=== PATIENT | female | born 1960 | race Caucasian/White ===

== ENCOUNTER 2020-05-03 10:11 | Outpatient (CLI) | payer OTHER, SELFPAY ==
--- NOTE | ~2020-05-03 | MM_ITS ---
EXAMINATION: MM screening jailyn BI w marlon HISTORY: Screening mammogram TECHNIQUE: Craniocaudal and mediolateral oblique 3-D tomosynthesis images were obtained and synthetic 2-D images were generated. CAD analysis was submitted and interpreted. COMPARISON: 03/22/2019, 03/09/2018, 03/06/2017, 03/05/2016 bilateral digital screening mammogram examinat ions BREAST PARENCHYMAL COMPOSITION: There are scattered areas of fibroglandular density. FINDINGS: There is an approximately 5 mm circumscribed opacity in the posterior aspect of the lower i nner quadrant of the right breast; this is unchanged since 03/05/2016 and therefore consistent with be nign process. There is no evidence of suspicious mass, calcification, or architectural distortion to suggest malignancy in either breast. There has been no suspicious interval change. IMPRESSION: 1. No mammographic evidence of malignancy. 2. Recommend routine screening mammography in one year. BI-RADS Category 2: Benign finding(s). Reviewed, dictated and finalized at location A.
== END 2020-05-03 10:12 | disposition home or self-care (01) ==
PROVIDERS: PCP Family Medicine Adolescent Medicine; Visit Provider Obstetrics & Gynecology
DX: Z12.31 Encounter for screening mammogram for malignant neoplasm of breast (principal)
CPT/HCPCS: 77063; 77067

== ENCOUNTER 2021-03-02 08:21 | Emergency (ER) | payer OTHER, SELFPAY ==
[2021-03-02 08:32] VITALS: BP 155/84; PULSE 76; RESP 16; TEMP 36; O2SAT 99
--- NOTE | 2021-03-02 08:37 | ED.EXTPRO ---
HPI - Extremity Problem General Chief complaint: Extremity Problem,Nontraumatic Stated complaint: right foot pain Time Seen by Provider: 03/02/21 08:37 Source: patient and RN notes reviewed Mode of arrival: ambulatory Limitations: no limitations History of Present Illness HPI Narrative: 60-year-old female presents with concern for right foot pain. Reports foot pain started yesterday. She denies any injury or trauma. She reports lateral foot pain that extends to the heel and Achilles tendon. She reports pain is present at rest, worsens with weightbearing and walking. Reports walking does not cause any worse pain than simple weightbearing. Reports pain worsens with more time weightbearing or walking. She denies bruising, redness, swelling, open skin. She denies decrease sensation, strength, range of motion. MD Complaint: extremity pain Related Data Home Medications Medication Instructions Recorded Confirmed atorvastatin 20 mg PO DAILY 03/02/21 03/02/21 azelastine 205.5 mcg INTRANASAL DAILY 03/02/21 03/02/21 betamethasone dipropionate 0.05 applic TOPICAL DAILY 03/02/21 03/02/21 buspirone 10 mg PO DAILY 03/02/21 03/02/21 colestipol 1 g PO DAILY 03/02/21 03/02/21 estradiol [Vagifem] 10 mcg VAGINAL DAILY 03/02/21 03/02/21 estradiol-norethindrone acet 0.5 tablet PO DAILY 03/02/21 03/02/21 [Amabelz] ketoconazole 2 applic TOPICAL DAILY 03/02/21 03/02/21 levothyroxine [Synthroid] 25 mcg PO DAILY 03/02/21 03/02/21 meloxicam 15 mg PO DAILY 03/02/21 03/02/21 metoclopramide HCl 10 mg PO DAILY 03/02/21 03/02/21 pantoprazole 40 mg PO DAILY 03/02/21 03/02/21 trazodone 100 mg PO DAILY 03/02/21 03/02/21 triamcinolone acetonide 0.1 applic TOPICAL DAILY 03/02/21 03/02/21 venlafaxine 75 mg PO DAILY 03/02/21 03/02/21 Allergies Allergy/AdvReac Type Severity Reaction Status Date / Time propoxyphene Allergy Mild Itching Verified 07/23/21 08:31 PROPOXYPHENE HCL Allergy Mild ITCHING Uncoded 03/02/21 08:31 PROPOXYPHENE NAPSYLATE Allergy Mild ITCHING Uncoded 03/02/21 08:31 Review of Systems Review of Systems: Narrative: CONSTITUTIONAL: Denies malaise, chills, sweats, or fever. SKIN: Denies abrasions, abrasions, bruising, redness MUSCULOSKELETAL: Reports right foot pain. Denies NEUROLOGIC: Denies numbness, weakness All systems reviewed & are unremarkable except as noted in HPI and below PMFSH Past Medical History Medical History (Updated 03/02/21 @ 08:53 by Cordelia Kevin NP) Chondromalacia of left patellofemoral joint Surgical History Surgical History (Updated 06/23/19 @ 15:51 by Mendez Hoffman MD) Status post left partial knee replacement Family History Family History Sibling Family history of diabetes mellitus in first degree relative Mother Family history of malignant neoplasm of breast in first degree relative Social History Social History Smoking status: Light tobacco smoker Smoking end date: 08/11/80 Alcohol intake: current Comments At time of signature, agree with nursing past medical, surgical, social and family history. There is no relevant family history pertinent to the presenting complaint Exam Narrative: Exam Narrative: GENERAL: Well-appearing, well-nourished, and in no acute distress. HEAD: Normocephalic, atraumatic. EYES: PERRLA, conjunctivae clear NECK: Supple. CHEST: Speaks in full sentences. No respiratory distress. HEART: Regular rate and rhythm. Normal and equal peripheral pulses. EXTREMITIES: Right foot has normal strength and sensation, normal range of motion. No edema or ecchymosis. 5/5 strength with ankle and digit flexion and extension. Normal sensation with sensitivity to light touch and pain. Mild tenderness to the heel upon palpation, no other tenderness noted to the foot or digits, no point tenderness. No open wounds, no skin tenting, no devitalized tissue or atrophy, n
== END 2021-03-02 08:55 | disposition home or self-care (01) ==
PROVIDERS: Emergency Provider Nurse Practitioner; PCP Family Medicine Adolescent Medicine
DX: M79.671 Pain in right foot (principal); M22.42 Chondromalacia patellae, left knee; Z96.652 Presence of left artificial knee joint
CPT/HCPCS: 99213; G0463

== ENCOUNTER → 2021-05-28 10:10 | Outpatient (CLI) | payer OTHER, SELFPAY ==
--- NOTE | ~2021-05-28 | DEXA_ITS ---
Bone Density Report Name: Erin Stephens Age: 61 Sex: Female Ethnicity: White Date of : 1960 Indication: monitoring treatment;postmenopausal Referring Provider: Tee Soriano Study: Bone densitometry was performed. Exam Date: May 28, 2021 Accession number: [id number] Bone Density: Region BMD T-score Z-score Classification AP Spine (L1, L2, L3) 1.144 1.1 2.7 Normal Femoral Neck (Left) 0.616 -2.1 -0.7 Osteopenia Total Hip (Left) 0.845 -0.8 0.3 Normal Femoral Neck (Right) 0.686 -1.5 -0.1 Osteopenia Total Hip (Right) 0.855 -0.7 0.4 Normal Total Hip Mean 0.850 -0.8 0.4 Normal World Health Organization criteria for BMD impression classify patients as: Normal (T-score at or above -1.0), Osteopenia (T-score between -1.0 and -2.5), or Osteoporosis (T-score at or below -2.5). 10-year Fracture Risk: FRAX not reported because: Treated for osteoporosis Previous Exams: Region Exam Age BMD T-score BMD Change BMD Change Date g/cm2 vs Baseline vs Previous AP Spine(L1, L2, L3) 05/28/2021 61 1.144 1.1 0.154* 0.079* 03/22/2019 58 1.065 0.4 0.075* 0.069* 03/06/2017 56 0.996 -0.2 0.006 -0.007 01/19/2013 52 1.003 -0.1 0.013 0.075* 01/04/2011 50 0.927 -0.8 -0.062* -0.062* 06/05/2009 49 0.990 -0.3 Total Hip(Left) 05/28/2021 61 0.845 -0.8 0.003 0.019 03/22/2019 58 0.826 -1.0 -0.017 -0.013 03/06/2017 56 0.839 -0.8 -0.003 -0.047* 01/19/2013 52 0.887 -0.5 0.044* 0.076* 01/04/2011 50 0.810 -1.1 -0.032* -0.032* 06/05/2009 49 0.843 -0.8 Total Hip(Right) 05/28/2021 61 0.855 -0.7 -0.003 -0.011 03/22/2019 58 0.866 -0.6 0.009 -0.006 03/06/2017 56 0.872 -0.6 0.014 -0.021 01/19/2013 52 0.893 -0.4 0.036* 0.059* 01/04/2011 50 0.834 -0.9 -0.023 -0.023 06/05/2009 49 0.857 -0.7 *Denotes significance at 95% confidence level, LSC for AP Spine = 0.022 g/cm2, LSC for Total Hip = 0.027 g/cm2 Clinical Information Provided by Patient: Is being treated for osteoporosis Has used the following medications: HRT (i.e. estrogen/hormone therapy), Vitamin D, Calcium Patient maximum height was 62 Menopause Age: 46 Drinks caffeinated beverages Onset of menses at age 11 Number of children 2
== END ==
PROVIDERS: PCP Family Medicine Adolescent Medicine; Visit Provider Obstetrics & Gynecology
DX: Z12.31 Encounter for screening mammogram for malignant neoplasm of breast (principal); Z13.820 Encounter for screening for osteoporosis; Z78.0 Asymptomatic menopausal state
CPT/HCPCS: 77080

== ENCOUNTER → 2021-07-09 10:12 | Outpatient (CLI) | payer OTHER, SELFPAY ==
--- NOTE | ~2021-07-09 | MM_ITS ---
EXAMINATION: MM screening jailyn BI w marlon HISTORY: Screening mammogram TECHNIQUE: Craniocaudal and mediolateral oblique 3-D tomosynthesis images were obtained and synthetic 2-D images were generated. CAD analysis was submitted and interpreted. COMPARISON: 05/03/2020, 03/22/2019, 03/09/2018 bilateral screening mammogram examinations BREAST PARENCHYMAL COMPOSITION: There are scattered areas of fibroglandular density. FINDINGS: Mild chronic asymmetry is noted. There is no evidence of suspicious mass, calcification, or architectural distortion to suggest malignancy in either breast. No significant new or developing de nsity is noted. There has been no suspicious interval change. IMPRESSION: 1. No mammographic evidence of malignancy. 2. Recommend routine screening mammography in one year. BI-RADS Category 2: Benign finding(s). Reviewed, dictated and finalized at location A. ROUTE CONTROLLER
== END ==
PROVIDERS: PCP Family Medicine Adolescent Medicine; Visit Provider Obstetrics & Gynecology
DX: Z12.31 Encounter for screening mammogram for malignant neoplasm of breast (principal)
CPT/HCPCS: 77063; 77067

== ENCOUNTER 2021-12-17 16:18 | Emergency (ER) | payer OTHER, SELFPAY ==
[2021-12-17 16:29] VITALS: BP 150/83; PULSE 106; RESP 18; TEMP 36.4; O2SAT 100
--- NOTE | 2021-12-17 16:29 | ED.GENADULT ---
HPI - General Adult General Chief complaint: Unspecified Stated complaint: Chills Time Seen by Provider: 12/17/21 16:29 Source: patient, RN notes reviewed and old records reviewed Mode of arrival: ambulatory Limitations: no limitations History of Present Illness HPI narrative: 61-year-old female presents to the [facility] with chills, sweats, fatigue, postnasal drip, nausea, vomited x1. Patient denies any chest pain or abdominal pain. States whenever she drinks water she gets increased nausea. Has a history of anxiety and has taken her Xanax but no improvement of symptoms. Denies any nasal congestion, ear pain, sore throat, chest pain, cough, abdominal pain. Denies actually having a fever. Patient symptoms are vague. Patient does not appear acutely ill, peers anxious. States she has been taking all of her medication as prescribed Reports taking one of her Xanax states it did not help her. Related Data Home Medications Medication Instructions Recorded Confirmed azelastine 205.5 mcg INTRANASAL DAILY 03/02/21 08/22/21 betamethasone dipropionate 0.05 applic TOPICAL DAILY 03/02/21 08/22/21 colestipol 1 g PO DAILY 03/02/21 08/22/21 estradiol-norethindrone acet 0.5 tablet PO DAILY 03/02/21 08/22/21 [Amabelz] ketoconazole 2 applic TOPICAL DAILY 03/02/21 08/22/21 metoclopramide HCl 10 mg PO DAILY 03/02/21 08/22/21 pantoprazole 40 mg PO DAILY 03/02/21 08/22/21 triamcinolone acetonide 0.1 applic TOPICAL DAILY 03/02/21 08/22/21 calcium carbonate 600 mg-vitamin cap PO 08/22/21 08/22/21 D3 5 mcg (200 unit) capsule celecoxib 200 mg capsule 200 mg PO BID PRN 08/22/21 08/22/21 hydroxyzine HCl 25 mg tablet 25 mg PO QHS PRN tablet 08/22/21 08/22/21 magnesium oxide,aspartate,citr mg PO 08/22/21 08/22/21 melatonin 3 mg capsule 3 mg PO QHS 08/22/21 08/22/21 polypodium leucotomos extract 120 cap PO 08/22/21 08/22/21 mg-niacinamide 250 mg capsule zinc acetate 50 mg (zinc) capsule 50 mg PO DAILY 08/22/21 08/22/21 Allergies Allergy/AdvReac Type Severity Reaction Status Date / Time propoxyphene Allergy Mild Itching Verified 12/17/21 16:28 lisinopril AdvReac Mild Cough Verified 12/17/21 16:28 PROPOXYPHENE HCL Allergy Mild ITCHING Uncoded 12/17/21 16:28 PROPOXYPHENE NAPSYLATE Allergy Mild ITCHING Uncoded 12/17/21 16:28 Review of Systems Review of Systems: All systems reviewed & are unremarkable except as noted in HPI and below Constitutional: Constitutional: Reports as per HPI, Reports chills, Reports fatigue and Denies fever(s) Eyes: Eyes: Reports no additional eye complaints ENT: Reports system reviewed and no additional complaints, except as documented, Denies dysphagia, Denies dizziness, Denies nasal congestion and Denies sore throat Cardiovascular: Cardiovascular: Reports no additional cardiovascular complaints, Denies chest pain and Denies radiating jaw, neck or arm pain Respiratory: Respiratory: Reports no additional respiratory complaints, Denies chest congestion, Denies cough, Denies dyspnea and Denies wheezing Gastrointestinal: Gastrointestinal: Reports no additional gastrointestinal complaints, Denies abdominal pain, Denies diarrhea, Denies nausea and Denies vomiting Musculoskeletal: Musculoskeletal: Reports no additional musculoskeletal complaints, Denies back pain, Denies myalgias, Denies arthralgias and Denies joint swelling Integumentary/Breasts: Skin/Breast: Reports system reviewed and no additional complaints, except as docu Neurologic: Reports system reviewed and no additional complaints, except as documented Psychiatric: Psychiatric: Reports as per HPI, Reports anxiety, Denies homicidal ideation and Denies suicidal ideation Allergic/Immunologic: Allergic/Immunologic: Reports no additional allergic/immunologic complaints PMFSH Past Medical History Medical History (Updated 12/17/21 @ 16:51 by Cordelia Alexis, JOE) Chondromalacia of left patellofemoral joint GERD (gastroesophageal reflux disease) Hypothyroid Kathryn
== END 2021-12-17 16:55 | disposition home or self-care (01) ==
PROVIDERS: Emergency Provider Nurse Practitioner; PCP Family Medicine Adolescent Medicine
DX: F41.9 Anxiety disorder, unspecified (principal); R11.0 Nausea; R68.83 Chills (without fever); E03.9 Hypothyroidism, unspecified; Z87.891 Personal history of nicotine dependence
CPT/HCPCS: 87804; 99213; G0463

== ENCOUNTER → 2022-10-14 12:44 | Outpatient (CLI) | payer OTHER, SELFPAY ==
--- NOTE | ~2022-10-14 | XR_ITS ---
XR chest 2V DATE: 10/14/2022 13:40 INDICATION: Cough TECHNIQUE: PA and lateral views COMPARISON: None FINDINGS: Normal heart size. No hilar or mediastinal enlargement. No pulmonary infiltrate or consolid ation, pleural effusion or pulmonary vascular congestion or pneumothorax. IMPRESSION: No active cardiopulmonary disease Reviewed, dictated and finalized at location B. ESTATE LEGAL SECRETARY
== END ==
PROVIDERS: PCP Family Medicine Adolescent Medicine; Visit Provider Physician Assistant
DX: R05.9 Cough, unspecified (principal)
CPT/HCPCS: 71046

== ENCOUNTER 2022-10-29 07:56 | Outpatient (CLI) | payer OTHER, SELFPAY ==
--- NOTE | 2022-10-29 11:13 | WPDPFTINT ---
PFT Procedure Performed PFT Procedure Performed Spirometry with Pre/Post Bronchodilator Plethysmography (Lung Vol) Diffusing Cap (DLCO) Flow Vol Loop PFT Interpretation This is a pulmonary function test with pre and post-bronchodilator spirometry, plethysmography and diffusing capacity. The test was performed and results interpreted in accordance with the 2019 and 2005 ATS/ERS Task Force guidelines respectively using the Global Lung Function Initiative-2012 reference equations. Patient demonstrated good effort and cooperation. Reproducibility criteria were met. The quality of the pre bronchodilator spirometry maneuver was Grade A and post bronchodilator spirometry maneuver was Grade A. Findings: Spirometry: The contour the inspiratory and expiratory flow tracing are normal. The pre bronchodilator FVC is 3.27 L, 116% predicted. The pre bronchodilator FEV1 is 2.46 L, 111% predicted. The pre bronchodilator FEV1: FVC ratio 75%. The post bronchodilator FVC is 3.10 L, representing a 5% decrease. The post bronchodilator FEV1 is 2.60 L, representing a 5% increase. The post bronchodilator FEV1: FVC ratio was 84%. Plethysmography: The total lung capacity is 4.81 L, 102% predicted. The functional residual capacity is 2.25 L, 84% predicted. The residual volume is 1.53 L, 78% predicted. Diffusing capacity: The diffusing capacity unadjusted for hemoglobin and carboxyhemoglobin is 14.0, 69% predicted. The diffusing capacity adjusted for alveolar volume is 3.86, 86% predicted. Impression: The spirometry is normal without evidence of an obstructive abnormality. There is no significant improvement after inhaling a single dose of albuterol. The lung volumes are normal. The diffusing capacity is normal. There are no prior studies for comparison
== END 2022-10-29 07:57 | disposition home or self-care (01) ==
LOC: ANHPFT 07:57
PROVIDERS: PCP Family Medicine Adolescent Medicine; Visit Provider Physician Assistant
DX: R05.9 Cough, unspecified (principal)
CPT/HCPCS: 94060; 94726; 94729

== ENCOUNTER → 2022-11-04 12:10 | Outpatient (CLI) | payer OTHER, SELFPAY ==
--- NOTE | ~2022-11-04 | MM_ITS ---
EXAMINATION: MM screening jailyn BI w marlon HISTORY: Screening TECHNIQUE: Craniocaudal and mediolateral oblique 3-D tomosynthesis images were obtained and synthetic 2-D images were generated. CAD analysis was submitted and interpreted. COMPARISON: Comparison to multiple prior studies sequentially, with oldest reviewed study dated 03/05. BREAST PARENCHYMAL COMPOSITION: There are scattered areas of fibroglandular density. FINDINGS: Focal asymmetry in the lower inner quadrant of the right breast is stable. There is no evid ence of suspicious mass, calcification, or architectural distortion to suggest malignancy in either b reast. There has been no suspicious interval change. IMPRESSION: 1. No mammographic evidence of malignancy. 2. Recommend routine screening mammography in one year. BI-RADS Category 1: Negative Reviewed, dictated and finalized at location A.
== END ==
PROVIDERS: PCP Family Medicine Adolescent Medicine; Visit Provider Obstetrics & Gynecology
DX: Z12.31 Encounter for screening mammogram for malignant neoplasm of breast (principal)
CPT/HCPCS: 77063; 77067

== ENCOUNTER 2023-12-02 13:58 | Outpatient (CLI) | payer MEDICARE, SELFPAY ==
--- NOTE | ~2023-12-02 | XR_ITS ---
AP view of the pelvis and AP and lateral views of the bilateral hips Clinical history: Pain Findings: No acute fracture or dislocation is seen. Osseous alignment is anatomic. Bilateral hip and SI joint spaces are preserved. Soft tissues are unremarkable. Lumbosacral spinal fixation hardware no jessica. There is degenerative spondylosis of the lower lumbar spine. Impression: No significant abnormality of the hip joints. Lumbar spine degenerative spondylosis with lumbosacral spinal fixation hardware. Reviewed, dictated and finalized at location M. Impression: No significant abnormality of the hip joints. Lumbar spine degenerative spondylosis with lumbosacral spinal fixation hardware .
== END 2023-12-02 13:59 ==
LOC: MICIMG 13:59
PROVIDERS: PCP Obstetrics & Gynecology; Visit Provider Nurse Practitioner Family
DX: G89.29 Other chronic pain (principal); M25.551 Pain in right hip; M25.552 Pain in left hip; M47.896 Other spondylosis, lumbar region; Z98.1 Arthrodesis status
CPT/HCPCS: 73521

== ENCOUNTER 2024-01-07 08:42 | Outpatient (CLI) | payer MEDICARE, SELFPAY ==
--- NOTE | ~2024-01-07 | CT_ITS ---
EXAMINATION: CT sinus wo con DATE: 01/07/2024 08:55 INDICATION: Sinusitis TECHNIQUE: Computed tomography (CT) of the paranasal sinuses was performed without intravenous contra st. The dose-length product was 274.70 mGy-cm. Automated exposure control and iterative reconstructio n technique were employed. COMPARISON: CT dated 12/01/2009 FINDINGS: No significant mucosal thickening or air-fluid level. Mastoids are pneumatized. Rightward n winifred septal deviation. Left-sided denae bullosa. Ostiomeatal units are patent. IMPRESSION: 1. No significant sinus disease. Reviewed, dictated and finalized at location B.
== END 2024-01-07 08:43 ==
PROVIDERS: PCP Family Medicine Adolescent Medicine; Visit Provider Otolaryngology
DX: J01.01 Acute recurrent maxillary sinusitis (principal)
CPT/HCPCS: 70486

== ENCOUNTER 2024-04-30 11:28 | Outpatient (CLI) | payer MEDICARE, SELFPAY ==
--- NOTE | ~2024-04-30 | MM_ITS ---
EXAMINATION: MM screening jailyn BI w marlon HISTORY: Screening mammogram, family history of breast cancer in her mother and sister. TECHNIQUE: Craniocaudal and mediolateral oblique 3-D tomosynthesis images were obtained and synthetic 2-D images were generated. CAD analysis was submitted and interpreted. COMPARISON: 11/04/2022, 07/09/2021, 05/03/2020 BREAST PARENCHYMAL COMPOSITION:Not Dense. There are scattered areas of fibroglandular density. FINDINGS: No suspicious mass, calcification, or architectural distortion are identified in either remedios ast to suggest malignancy. There has been no suspicious interval change. IMPRESSION: No mammographic evidence of malignancy. Recommend routine screening mammography in one year. BI-RADS Category 1: Negative Reviewed, dictated and finalized at location .
== END 2024-04-30 11:29 | disposition home or self-care (01) ==
LOC: MICIMG 11:28
PROVIDERS: PCP Family Medicine Adolescent Medicine; Visit Provider Obstetrics & Gynecology
DX: Z12.31 Encounter for screening mammogram for malignant neoplasm of breast (principal)
CPT/HCPCS: 77063; 77067

== ENCOUNTER 2024-05-03 10:02 | Outpatient (CLI) | payer MEDICARE, SELFPAY ==
--- NOTE | ~2024-05-03 | MR_ITS ---
MRI of the cervical spine Clinical History: Mononeuropathy of upper limbs Technique: Axial T2-weighted and gradient images, and sagittal T1-weighted, T2-weighted, and STIR johanna ges were acquired. Findings: There is straightening of the normal cervical lordosis. No fracture evident. There is minim al grade 1 anterolisthesis of C6 over C7. There is an intraosseous hemangioma at T2. No suspicious bri ne marrow signal abnormality seen. At C2-C3, there is no disc bulge or herniation. No spinal canal stenosis, cord compression, or neural foraminal narrowing. At C3-C4, there is moderate degenerative change. There is mild disc ossify complex and bilateral face t arthropathy. There is bilateral neural foraminal narrowing. No central canal stenosis or cord compr ession. At C4-C5, there is moderate degenerative disc narrowing. There is disc ossify complex and bilateral f acet arthropathy. There is bilateral neural foraminal narrowing. There is mild canal stenosis without ade cord compression. At C5-C6, there is moderate degenerative disc narrowing. There is mild disc ossify complex with bilat eral facet arthropathy, right worse than left. There is severe right neural foraminal narrowing. Left neural foramen is mildly narrowed. No ade canal stenosis or cord compression. At C6-C7, there is degenerative disc narrowing. No disc bulge or herniation evident. There is right f acet arthropathy. There is possible minimal right neural foraminal narrowing. Left neural foramen pre served. No central canal stenosis or cord compression. No abnormal signal seen in the spinal cord. Paravertebral soft tissues are unremarkable. Impression: Moderate degenerative spondylosis overall, as detailed above. Reviewed, dictated and finalized at location M. Impression: Moderate degenerative spondylosis overall, as detailed above.
== END 2024-05-03 10:03 | disposition home or self-care (01) ==
LOC: MICIMG 10:02
PROVIDERS: PCP Family Medicine Adolescent Medicine; Visit Provider Nurse Practitioner Family
DX: M47.892 Other spondylosis, cervical region (principal)
CPT/HCPCS: 72141

== ENCOUNTER 2024-05-13 06:08 | Day surgery (SDC) | payer MEDICARE, SELFPAY ==
[2024-04-14 15:16] VITALS: BMI 31.8
--- NOTE | 2024-05-12 16:09 | WPDANESEPPF ---
Anes - Initial Pre Proc Eval Procedure: Operation Date: 05/13/24 07:30 Proposed Procedures p Esophagogastroduodenoscopy - Noe Jon MD s Diagnostic Colonoscopy - Noe Jon MD Date/Time: 05/12/24 16:09 Surgeon: Noe Jon MD Pre Op Diagnosis: Gerd , HX Colon Polyps Patient Data Age: 63 Gender: F Height: 1.57 m Weight: 79.288 kg Allergies Allergy/AdvReac Type Severity Reaction Status Date / Time propoxyphene Allergy Mild Itching Verified 05/13/24 06:23 lisinopril AdvReac Mild Cough Verified 05/13/24 06:23 PROPOXYPHENE HCL Allergy Mild ITCHING Uncoded 05/13/24 06:23 PROPOXYPHENE NAPSYLATE Allergy Mild ITCHING Uncoded 05/13/24 06:23 Home Medications Medication Instructions Recorded Confirmed Type estradiol-norethindrone acet 0.5 0.5 tablet PO DAILY 03/02/21 05/13/24 History mg-0.1 mg tablet (Amabelz) calcium 600 mg (as 1 cap PO DIRECTED 08/22/21 05/13/24 History carbonate)-vitamin D3 5 mcg (200 unit) capsule (Calcium 600 + D(3)) multivitamin with minerals 1 tablet PO DAILY 12/24/21 05/13/24 History (Hair,Skin and Nails tablet) alprazolam 0.25 mg tablet 0.25 mg PO TID PRN anxiety #90 tabs 10/09/22 05/13/24 Rx fluticasone propionate 50 2 spray intranasal DAILY #48 grams 05/04/23 05/13/24 Rx mcg/actuation nasal spray,suspension (Allergy Relief (fluticasone)) levothyroxine 50 mcg tablet 50 mcg PO DAILY #90 tabs 05/05/23 05/13/24 Rx gabapentin 300 mg capsule 600 mg PO BID 05/14/23 05/13/24 History buspirone 15 mg tablet 15 mg PO BID #180 tabs 06/12/23 05/13/24 Rx trazodone 100 mg tablet 100 mg PO QHS #90 tabs 07/09/23 05/13/24 Rx losartan 100 mg tablet 100 mg PO DAILY #90 tabs 11/07/23 05/13/24 Rx celecoxib 200 mg capsule (Celebrex) 200 mg PO BID #180 caps 11/17/23 05/13/24 Rx estradiol 10 mcg vaginal tablet 10 mcg vaginal 2XW 12/22/23 05/13/24 History (Yuvafem) lifitegrast 5 % eye drops in a 1 drp EACH EYE BID 12/22/23 05/13/24 History dropperette (Xiidra) atorvastatin 20 mg tablet See Rx Instructions .Route 01/29/24 05/13/24 Rx .COMPLEX #90 tabs sodium,potassium,mag sulfates 17.5 See Rx Instructions PO .COMPLEX 04/14/24 05/13/24 Rx gram-3.13 gram-1.6 gram oral soln #354 mL (Suprep Bowel Prep Kit) indapamide 2.5 mg tablet 2.5 mg PO DAILY #90 tabs 04/25/24 05/13/24 Rx atomoxetine 18 mg capsule 18 mg PO DAILY 04/28/24 05/13/24 History duloxetine 30 mg capsule,delayed 30 mg PO DIRECTED 04/28/24 05/13/24 History release duloxetine 60 mg capsule,delayed 60 mg PO DAILY 04/28/24 05/13/24 History release hydroxyzine HCl 10 mg tablet 10 mg PO BID PRN UNKNOWN 04/28/24 05/13/24 History omeprazole 40 mg capsule,delayed 40 mg PO DAILY laryngopharyngeal 05/12/24 05/13/24 Rx release reflux #60 caps Patient hx anesthesia problems: none Family hx anesthesia problems: none Results Review: All pre-operative results and documents have been reviewed as part of the pre-operative evaluation. [facility] Past Medical History Medical History (Updated 05/13/24 @ 07:11 by Noe Jon MD) Chondromalacia of left patellofemoral joint GERD (gastroesophageal reflux disease) Hypertension Hypothyroid Major depressive disorder, recurrent, mild Osteopenia Prediabetes Pure hypercholesterolemia, unspecified Rotator cuff injury Seasonal affective disorder Surgical History Surgical History History of rotator cuff surgery S/p total knee replacement, bilateral Status post left partial knee replacement Family History Family History Sibling Family history of diabetes mellitus in first degree relative Autoimmune hepatitis Mother Family history of malignant neoplasm of breast in first degree relative Heart disease Father , Colon Ca Carcinoma of colon Social History Social History (Reviewed 04/28/24 @ 10:20 by Milena Haro AP
[2024-05-13 06:28] VITALS: BP 143/90; PULSE 77; RESP 15; TEMP 36.5; O2SAT 97
[2024-05-13] MEDS: LACTATED RINGERS 1,000 ML 150 ML IV CONT (06:47)
--- NOTE | 2024-05-13 07:07 | PM.HPGS ---
History of Present Illness History of Present Illness Consent: Risks, benefits, and alternatives have been discussed and questions answered. Patient agrees to proceed with procedure. Chief complaint: Gerd , HX Colon Polyps Narrative: Erin Stephens is a 63 year old female is referred for both colonoscopy and EGD. The patient complains of ongoing regurgitation. At night she will have food which comes back in her throat. She Denies significant heartburn. She does have some pins and needle sensation in her throat. Patient denies any heartburn. In the past has been treated with pantoprazole. Most recently she has been treated with omeprazole. Symptoms persist despite this therapy. Follow-up EGD was recommended and patient referred for EGD this current status. She currently is to avoid anti-reflux surgery. Additionally patient gives a history of having colon polyps on several previous colonoscopies. Adenomatous polyps were removed at the time of most recent colonoscopy 5 years ago. Review of Systems Review of Systems: All systems reviewed & are unremarkable except as noted in HPI and below PMFSH Past Medical History Medical History (Updated 05/13/24 @ 07:11 by Noe Jon MD) Chondromalacia of left patellofemoral joint GERD (gastroesophageal reflux disease) Hypertension Hypothyroid Major depressive disorder, recurrent, mild Osteopenia Prediabetes Pure hypercholesterolemia, unspecified Rotator cuff injury Seasonal affective disorder Surgical History Surgical History History of rotator cuff surgery S/p total knee replacement, bilateral Status post left partial knee replacement Family History Family History Sibling Family history of diabetes mellitus in first degree relative Autoimmune hepatitis Mother Family history of malignant neoplasm of breast in first degree relative Heart disease Father , Colon Ca Carcinoma of colon Social History Social History Smoking status: Former smoker Tobacco type: cigarettes Second hand tobacco smoke exposure: No Smoking end date: 08/11/80 Alcohol intake: current Drinks per week: 1 Substance use: never Substance use type: does not use Lack of Transportation: No Lack of Food: Never True Current Housing: I Have Housing Concerned About Future Housing: No Difficulty Paying Gas/Electric Bills: No Difficulty Paying for Meds: No Currently Unemployed: No Education: Master's Degree or Higher Difficulty w/ Childcare or Family Care: No Living arrangements: with family Occupation/Education: retired Gender identity (if verbalized by the patient): Female Sexual Orientation (if Verbalized by the Patient): Straight or Heterosexual Spiritual care concerns: No Agree to blood products: Yes Meds Home Medications and Allergies Home Medications Medication Instructions Recorded Confirmed Type estradiol-norethindrone acet 0.5 0.5 tablet PO DAILY 03/02/21 05/13/24 History mg-0.1 mg tablet (Amabelz) calcium 600 mg (as 1 cap PO DIRECTED 08/22/21 05/13/24 History carbonate)-vitamin D3 5 mcg (200 unit) capsule (Calcium 600 + D(3)) multivitamin with minerals 1 tablet PO DAILY 12/24/21 05/13/24 History (Hair,Skin and Nails tablet) alprazolam 0.25 mg tablet 0.25 mg PO TID PRN anxiety #90 tabs 10/09/22 05/13/24 Rx fluticasone propionate 50 2 spray intranasal DAILY #48 grams 05/04/23 05/13/24 Rx mcg/actuation nasal spray,suspension (Allergy Relief (fluticasone)) levothyroxine 50 mcg tablet 50 mcg PO DAILY #90 tabs 05/05/23 05/13/24 Rx gabapentin 300 mg capsule 600 mg PO BID 05/14/23 05/13/24 History buspirone 15 mg tablet 15 mg PO BID #180 tabs 06/12/23 05/13/24 Rx trazodone 100 mg tablet 100 mg PO QHS #90 tabs 07/09/23 05/13/24 Rx losar
[2024-05-13 07:48] VITALS: BP 108/66; PULSE 79; RESP 16; O2SAT 96
[2024-05-13 07:58] VITALS: BP 104/64; PULSE 79; RESP 16; O2SAT 97
[2024-05-13 08:08] VITALS: BP 116/72; PULSE 78; RESP 16; O2SAT 98
--- NOTE | 2024-05-13 12:02 | WPDANESPN ---
Anes - Prog Note Post-Op Date/Time: 05/13/24 12:02 Cardiovascular status: normal Respiratory status: normal Airway patency: baseline Mental status: baseline Post-Op hydration status: normal Vital Signs: Last Vital Signs Temp 36.5 C 05/13/24 06:28 Pulse 78 05/13/24 08:08 Resp 16 05/13/24 08:08 BP 116/72 05/13/24 08:08 Pulse Ox 98 05/13/24 08:08 O2 Del Method Room Air 05/13/24 08:08 Pain Score (VAS): 0 I/O: Intake & Output 05/12/24 05/13/24 05/13/24 23:59 07:59 15:59 Intake Total 600 300 Balance 600 300 Post-procedural complaints: none Patient Feedback: Patient satisfied with anesthetic care. Other Findings: Patient vital signs back to baseline. Patient denies nausea and vomiting. Patient's pain under control. Patient OK for discharge.
== END 2024-05-13 08:19 | disposition home or self-care (01) ==
PROVIDERS: PCP Family Medicine Adolescent Medicine; Visit Provider Internal Medicine Gastroenterology
PROC: 0DJ08ZZ Inspection of Upper Intestinal Tract, Via Natural or Artificial Opening Endoscopic (ICD-10-PCS; CPT 43235; principal; 2024-05-13 07:30)
PROC: 0DJD8ZZ Inspection of Lower Intestinal Tract, Via Natural or Artificial Opening Endoscopic (ICD-10-PCS; CPT 45378; 2024-05-13 07:30)
DX: Z86.0100 Personal history of colon polyps, unspecified (principal); K21.9 Gastro-esophageal reflux disease without esophagitis; K57.30 Diverticulosis of large intestine without perforation or abscess without bleeding; K64.8 Other hemorrhoids; K44.9 Diaphragmatic hernia without obstruction or gangrene
CPT/HCPCS: 45378; 43239

== ENCOUNTER 2024-06-11 13:37 | Outpatient (CLI) | payer MEDICARE, SELFPAY ==
--- NOTE | ~2024-06-11 | DEXA_ITS ---
Bone Density Report Name: VARUN SZYMANSKI Age: 64 Sex: Female Ethnicity: White Date of : 1960 Indication: postmenopausal; screening for osteoporosis; height loss; Referring Provider: MALACHI LOWE Study: Bone densitometry was performed. Exam Date: June 11, 2024 Accession number: [id number] Bone Density: Region BMD T-score Z-score Classification AP Spine(L1-L4) 1.783 6.7 8.5 Normal Femoral Neck (Left) 0.682 -1.5 0.1 Osteopenia Total Hip (Left) 1.006 0.5 1.8 Normal Femoral Neck (Right) 0.767 -0.7 0.8 Normal Total Hip (Right) 1.013 0.6 1.9 Normal Total Hip Mean 1.009 0.6 1.9 Normal World Health Organization criteria for BMD impression classify patients as: Normal (T-score at or above -1.0), Osteopenia (T-score between -1.0 and -2.5), or Osteoporosis (T-score at or below -2.5). 10-year Fracture Risk(1): Major Osteoporotic Fracture 8.5% Hip Fracture 0.9% Reported Risk Factors: [place] (), Neck BMD=0.682, BMI=33.9 (1) FRAX(R) Version 3.08. Fracture probability calculated for an untreated patient. Fracture probability may be lower if the patient has received treatment. Clinical Information Provided by Patient: Has used the following medications: Vitamin D, Calcium Patient maximum height was 62 Menopause Age: 41 Drinks caffeinated beverages Onset of menses at age 11 Number of children 2 Impression: The patient has low bone mass, based on the Left Femoral Neck T-score. The patient has an estimated ten-year risk of hip fracture of 0.9% and an estimated ten-year risk of major fracture of 8.5%, based on the WHO FRAX algorithm. Discussion: BONE DENSITY IS LOW AT ONE OR MORE SKELETAL SITES. This patient's lowest T-score is low at one or more skeletal sites. It meets the World Health Organization's (WHO) criteria for ?low bone mass? (T-score between -1.0 and -2.5). The patient's 10-year risk of fracture as calculated by FRAX is less than the threshold where pharmacological therapy is recommended by the National Osteoporosis Foundation (NOF). However, all treatment decisions require clinical judgment and consideration of individual patient factors, including patient preferences, comorbidities, previous drug use, risk factors not captured in the FRAX model (e.g., frailty, falls, vitamin D deficiency, increased bone turnover, interval significant decline in bone density) and possible under or overestimation of fracture risk by FRAX. The patient should follow a healthful lifestyle (good nutrition with adequate calcium and vitamin D, and appropriate weight-bearing exercise). Follow-Up: Consider repeating this study in 2 to 3 years to reassess this patient's status, or sooner if there is some new clinical indication. Reported by: JOVANNY on 06/11/2024 2:28:00 PM. Reviewed, dictated and finalized at location [facility]
== END 2024-06-11 13:38 | disposition home or self-care (01) ==
LOC: ANHIMG 13:38
PROVIDERS: PCP Family Medicine Adolescent Medicine; Visit Provider Obstetrics & Gynecology
DX: Z78.0 Asymptomatic menopausal state (principal); M85.852 Other specified disorders of bone density and structure, left thigh
CPT/HCPCS: 77080

== ENCOUNTER 2024-07-14 14:30 | Outpatient (RCR) | payer MEDICARE, SELFPAY | END 2024-08-23 10:04 | disposition home or self-care (01) | LOC: ANHDMC 14:30 | PROVIDERS: PCP Family Medicine Adolescent Medicine; Visit Provider Nurse Practitioner Family | DX: E11.9 Type 2 diabetes mellitus without complications (principal); Z71.89 Other specified counseling | CPT/HCPCS: G0108; G0109 ==

== ENCOUNTER 2024-10-28 14:16 | Outpatient (RCR) | payer MEDICARE, SELFPAY | END 2024-11-01 16:10 | disposition home or self-care (01) | LOC: ANHDMC 14:16 | PROVIDERS: PCP Family Medicine Adolescent Medicine; Visit Provider Nurse Practitioner Family | DX: E11.9 Type 2 diabetes mellitus without complications (principal); Z71.89 Other specified counseling | CPT/HCPCS: G0109 ==

== ENCOUNTER 2025-05-17 14:42 | Outpatient (RCR) | payer MEDICARE, SELFPAY ==
[2025-05-17 14:45] VITALS: BMI 24.0
[2025-05-17 14:48] VITALS: BMI 24.0
--- NOTE | 2025-05-17 16:52 | PCDIET ---
05/17/25: Initial MNT consult completed. Follow up scheduled.
== END 2025-08-08 12:46 | disposition home or self-care (01) ==
LOC: ANHDMC 14:42
PROVIDERS: PCP Nurse Practitioner Family; Visit Provider Family Medicine Adolescent Medicine
DX: E11.9 Type 2 diabetes mellitus without complications (principal); L65.0 Telogen effluvium; E03.9 Hypothyroidism, unspecified; M85.80 Other specified disorders of bone density and structure, unspecified site; Z71.3 Dietary counseling and surveillance
CPT/HCPCS: 97802

== ENCOUNTER 2025-07-28 14:43 | Outpatient (CLI) | payer MEDICARE, SELFPAY ==
--- NOTE | ~2025-07-28 | MM_ITS ---
EXAMINATION: MM screening jailyn BI w marlon HISTORY: Screening TECHNIQUE: Craniocaudal and mediolateral oblique 3-D tomosynthesis images were obtained and synthetic 2-D images were generated. CAD analysis was submitted and interpreted. COMPARISON: Comparison to multiple prior studies sequentially, with oldest reviewed study dated 03/09/2028. BREAST PARENCHYMAL COMPOSITION: Dense: The breasts are heterogeneously dense, which may obscure small masses FINDINGS: There is no evidence of suspicious mass, calcification, or architectural distortion to suggest malignancy in either breast. There has been no suspicious interval change. IMPRESSION: 1. No mammographic evidence of malignancy. 2. Recommend routine screening mammography in one year. BI-RADS Category 1: Negative Reviewed, dictated and finalized at location O. 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
--- NOTE | ~2025-07-28 | MR_ITS ---
EXAMINATION: MR brain/brain stem wo con DATE: 07/28/2025 15:29 INDICATION: Mild cognitive impairment TECHNIQUE: Magnetic resonance imaging (MRI) of the brain and brainstem was performed without intravenous contrast. Sequences included sagittal and axial T1-weighted SE, axial diffusion-weighted FS SE, axial T2*-weighted GRE, axial T2-weighted FLAIR, and axial T2-weighted FSE. Apparent diffusion coefficient (ADC) maps were created. COMPARISON: Head CT dated 12/01/2009 FINDINGS: There are no areas of restricted diffusion to suggest acute infarction. No intracranial hemorrhage or abnormal intracranial mass lesion. There are few scattered small areas of nonspecific increased T2-weighted signal intensity in the cerebral white matter which is within normal limits for age and likely sequela of chronic small vessel ischemic disease.. There are no intraparenchymal signal abnormalities seen on the other pulse sequences. The ventricles are symmetric and normal in size. There are no abnormal extra-axial fluid collections. Flow voids are seen in the cerebral arteries on the T2-weighted sequences consistent with their expected patency. Mild mucoperiosteal thickening the bilateral ethmoid sinuses. Visualized orbits and soft tissues are unremarkable. IMPRESSION: 1. Mild scattered white matter hypoattenuation which is within normal limits for age and likely sequela of chronic small vessel ischemic disease. No acute intracranial process. Reviewed, dictated and finalized at location A. BASKET MAKER IMPRESSION: 1. Mild scattered white matter hypoattenuation which is within normal limits fo r age and likely sequela of chronic small vessel ischemic disease. No acute int racranial process.
--- OUTSIDE RECORDS SUMMARY | 2025-07-28 15:41 | XMS_ITS | Patient Health Record ---
Author Organization [facility] Address [address] [facility] [address] [place] [address] Care Team Providers Care Licensing Manager Name Role Phone Rm BOGGS, Vicente Primary Care Provider Angela Stella Ordonez Unavailable [phone] Geovani Jernigan Unavailable [phone] Allergies Allergen (clinical drug ingredient) Drug/Non Drug Allergy documented on EMR Reaction Allergy Type Onset Date Status DARVOCET-N (uncoded) Unknown Allergy Active Darvon Unknown Drug Allergy 12/04/2023 Active Results Component Value Reference Range Flag Notes UDT Reviewed date:11/23/2024 02:37:50 PM Interpretation: Performing Lab: Notes/Report: Amphetamine (AMP) N 0 - 1000 ng/ml Buprenorphine (BUP) N 0 - 10 ng/ml Oxazepam (BZO) N 0 - 300 ng/ml Cocaine (HANG) N 0 - 300 ng/ml Methamphetamine (mAMP) N 0 - 300 ng/ml Methylenedioxymethamphetamin e (MDMA) N 0 - 500 ng/ml Morphine (MOP) N 0 - 25 ng/ml Methadone (MTD) N 0 - 300 ng/ml Oxycodone (OXY) N 0 - 300 ng/ml THC P 0 - 50 ng/ml x N 0 - 1000 ng/ml x N 0 - 1000 ng/ml x N 0 - 300 ng/ml x N 0 - 300 ng/ml x N 0 - 300 ng/ml PRESCRIBED DRUGS, medMATCH(R ) ([id number]) Reviewed date:11/10/2024 07:47:50 AM Interpretation: Performing Lab:[id number] Andrew [id number] Leroy Israel MD Notes/Report: FASTING: NO medMATCH Summary Prescribed Prescribed Not Prescribed Consistent Inconsistent Inconsistent Alprazolam Prescribed Drug 1 Alprazolam DRUG MONITOR, ANKIT DE LEÓN URI NE ([id number]) Reviewed date:11/10/2024 07:47:50 AM Interpretation: Performing Lab:CB, [facility] [id number] [facility]ccsYE[address] Zeyad Oliviera, Director - [id number] [facility] Notes/Report: FASTING: NO Alphahydroxyalprazolam NEGATIVE <25 ng/mL medMATCH aOH alprazolam INCONSISTENT A Alphahydroxymidazolam NEGATIVE <50 ng/mL Alphahydroxytriazolam NEGATIVE <50 ng/mL Aminoclonazepam NEGATIVE <25 ng/mL Hydroxyethylflurazepam NEGATIVE <50 ng/mL Lorazepam NEGATIVE <50 ng/mL Nordiazepam NEGATIVE <50 ng/mL Oxazepam NEGATIVE <50 ng/mL Temazepam NEGATIVE <50 ng/mL Benzodiazepines Comments See LDT Notes Notes and Comments This drug testing is for medical treatment only. Analysis was performed as non-forensic testing and these results should be used only by healthcare providers to render diagnosis or treatment, or to monitor progress of medical conditions. LDT Notes: Confirmation tests were developed and their analytical performance characteristics have been determined by [facility]. It has not been cleared or approved by the FDA. This assay has been validated pursuant to the CLIA regulations and is used for clinical purposes. medMATCH(R) enables providers to identify if drug use is consistent or inconsistent with a corresponding prescribed medication(s) list. Healthcare Providers needing Interpretation assistance, please contact us at [phone] ( ) M-F, 8am to 10pm EST Benzodiazepines Reviewed date:10/01/2024 04:32:14 PM Interpretation: Performing Lab:, [facility], [address] [place] [address], Director - [id number] Notes/Report: An exception occurred while processing this report and so it has incomplete data. Please contact [employer] Support for assistance. Medicated Inconsistent Medicated Inconsistent Not Medicated Consistent Not Medicated Consistent Not Medicated Consistent Not Medicated Consistent Not Medicated Consistent Not Medicated Consistent Not Medicated Consistent Not Medicated Consistent 7-Aminoclonazepam NEGATIVE 20.0 ng/mL Temazepam NEGATIVE 40.0 ng/mL Oxazepam NEGATIVE 40.0 ng/mL Midazolam NEGATIVE 40.0 ng/mL Lorazepam NEGATIVE 40.0 ng/mL Nordiazepam NEGATIVE 40.0 ng/mL Diazepam NEGATIVE 40.0 ng/mL Clonazepam NEGATIVE 20.0 ng/mL Hydroxyalprazolam NEGATIVE 20.0 ng/mL Alprazolam NEGATIVE 20.0 ng/mL PDF Report CE_OUT_RAW_COMM ON_SRC_ORU UDT Reviewed date:09/28/2024 11:10:15 AM Interpretation: Performing Lab: Notes/Report: Amphetamine (AMP) neg 0 - 1000 ng/ml Buprenorphine (BUP) neg 0 - 10 ng/ml Oxazepam (BZO) neg 0 - 300 ng/ml Cocaine (HANG) neg 0 - 300 ng/ml Methamphetamine (mAMP) neg 0 - 300 ng/ml Methylenedioxymethamphetamin e (MDMA) neg 0 - 500 ng/ml Morphine (MOP) neg 0 - 25 ng/ml Methadone (MTD) neg 0 - 300 ng/ml Oxycodone (OXY) neg 0 - 300 ng/ml THC pos 0 - 50 ng/ml x neg 0 - 1000 ng/ml x neg 0 - 1000 ng/ml x neg 0 - 300 ng/ml x neg 0 - 300 ng/ml x neg 0 - 300 ng/ml Illicits Reviewed date:12/03/2024 10:24:09 AM Interpretation: Performing Lab: Notes/Report: THCCOOH 79.5 15.0 ng/mL POSITIVE Not Medicated Inconsistent PCP NEGATIVE 20.0 ng/mL Not Medicated Consistent MDMA NEGATIVE 50.0 ng/mL Not Medicated Consistent MDEA NEGATIVE 50.0 ng/mL Not Medicated Consistent MDA NEGATIVE 50.0 ng/mL Not Medicated Consistent Cocaine Metabolite NEGATIVE 20.0 ng/mL Not Me dicated Consistent 6-SAYRA NEGATIVE 10.0 ng/mL Not Medicated Consistent POS screening WITH Metabolit es Reviewed date:12/02/2024 02:51:53 PM Interpretation: Performing Lab: Notes/Report: Benzodiazepines Reviewed date:12/03/2024 10:24:09 AM Interpretation: Performing Lab: Notes/Report: Medicated Inconsistent Medicated Inconsistent Not Medicated Consistent Not Medicated Consistent Not Medicated Consistent Not Medicated Consistent Not Medicated Consistent Not Medicated Consistent Not Medicated Consistent Not Medicated Consistent 7-Aminoclonazepam NEGATIVE 20.0 ng/mL Temazepam NEGATIVE 40.0 ng/mL Oxazepam NEGATIVE 40.0 ng/mL Midazolam NEGATIVE 40.0 ng/mL Lorazepam NEGATIVE 40.0 ng/mL Nordiazepam NEGATIVE 40.0 ng/mL Diazepam NEGATIVE 40.0 ng/mL Clonazepam NEGATIVE 20.0 ng/mL Hydroxyalprazolam NEGATIVE 20.0 ng/mL Alprazolam NEGATIVE 20.0 ng/mL Validity Testing Reviewed date:12/03/2024 10:24:09 AM Interpretation: Performing Lab: Notes/Report: Not Medicated Consistent Not Medicated Consistent Not Medicated Consistent Not Medicated Consistent Specific [place] 1.011 1.003 - 1.030 pH 5.4 3.0 - 10.9 Oxidants -40 200 g/mL Creatinine 216.0 20.0 - 300.0 mg/dL Screening Reviewed date:12/03/2024 10:24:09 AM Interpretation: Performing Lab:[address] [place] [address], [address] [place] [address], Director - [id number] Notes/Report: An exception occurred while processing this report and so it has incomplete data. Please contact [employer] Support for assistance. Not Medicated Consistent Medicated Inconsistent Not Medicated Consistent Not Medicated Consistent Not Medicated Inconsistent Not Medicated Consistent Not Medicated Consistent Not Medicated Consistent Not Medicated Consistent Not Medicated Consistent Not Medicated Consistent Not Medicated Consistent Not Medicated Consistent Not Medicated Consistent Amphetamines - Screening NEGATIVE 500.0 Benzodiazepines - Screening 22.4 200.0 Opiates - Screening 2.2 300.0 THC - Screening 162.1 50.0 POSITIVE MDMA - Screening NEGATIVE 500.0 Heroin - Screening NEGATIVE 10.0 ng/mL Cocaine - Screening NEGATIVE 150.0 Buprenorphine - Screening NEGATIVE 5.0 ng/mL Oxycodone - Screening NEGATIVE 100.0 EtG - Screening NEGATIVE 500.0 Fentanyl - Screening NEGATIVE 2.0 ng/mL Methadone - Screening 100.7 300.0 Phencyclidine - Screening NEGATIVE 25.0 Propoxyphene - Screening 22.3 300.0 PDF Report CE_OUT_RAW_COMM ON_SRC_ORU UDT Reviewed date:10/26/2024 11:29:34 AM Interpretation: Performing Lab: Notes/Report: Amphetamine (AMP) N 0 - 1000 ng/ml Buprenorphine (BUP) N 0 - 10 ng/ml Oxazepam (BZO) N 0 - 300 ng/ml Cocaine (HANG) N 0 - 300 ng/ml Methamphetamine (mAMP) N 0 - 300 ng/ml Methylenedioxymethamphetamin e (MDMA) N 0 - 500 ng/ml Morphine (MOP) N 0 - 25 ng/ml Methadone (MTD) N 0 - 300 ng/ml Oxycodone (OXY) N 0 - 300 ng/ml THC P 0 - 50 ng/ml x N 0 - 1000 ng/ml x N 0 - 1000 ng/ml x N 0 - 300 ng/ml x N 0 - 300 ng/ml x N 0 - 300 ng/ml Reason For Referral No Information Medications Medication SIG (Take, Route, Frequency, Duration) Notes Start Date End Date Status Mounjaro 5 MG/0.5ML Solution Auto-injector 5 MG (0.5 ML) SUBCUTANEOUSLY WEEKLY Subcutaneous; Duration: 28 Days Active Yuvafem 10 mcg Tablet Vaginal 12/17/2023 Unknown Losartan Potassium 100 MG Tablet Oral 12/17/2023 Unknown Fluticasone Propionate 50 MCG/ACT Suspension Nasal; Duration: 90 Days Unknown Xiidra 5 % Solution Ophthalmic 12/17/2023 Unknown ESTRADIOL-NORETHIND KAROLINE ACETAT 0.5-0.1 mg Tablet Oral *Reorder from Ensa for eRx and Interaction Alerts* 12/17/2023 Unknown Estradiol-Norethind karoline Acet 0.5-0.1 MG Tablet Oral; Duration: 84 Days Unknown Atomoxetine HCl 100 MG Capsule 1 capsule every morning Orally Once a day; Duration: 90 days 06/24/2025 Active Atorvastatin Calcium 20 MG Tablet TAKE 1 TABLET BY MOUTH DAILY Oral; Duration: 90 Days Unknown hydrOXYzine HCl 25 MG Tablet 1 tablet as needed Orally twice a day; Duration: 90 days Active Pantoprazole Sodium 40 MG Tablet Delayed Release Oral 12/17/2023 Unknown Yuvafem 10 MCG Tablet INSERT ONE VAGINALLY TWICE WEEKLY Vaginal; Duration: 84 Days Unknown ALPRAZolam 0.25 MG Tablet 1 tablet Orally Twice a day; Duration: 30 days As needed for anxiety Active Levothyroxine Sodium 50 MCG Tablet Oral 12/17/2023 Unknown Indapamide 2.5 MG Tablet TAKE 1 TABLET BY MOUTH EVERY DAY Oral; Duration: 90 Days Unknown DULoxetine HCl 60 MG Capsule Delayed Release Particles 1 capsule Orally Once a day in the morning; Duration: 90 days 06/24/2025 Active buPROPion HCl ER (XL) 150 MG Tablet Extended Release 24 Hour 1 tablet in the morning Orally Once a day; Duration: 90 days 06/24/2025 Active Losartan Potassium 100 MG Tablet Oral; Duration: 90 Days Unknown busPIRone HCl 10 MG Tablet 1 tablet Oral Twice a day; Duration: 90 days 06/24/2025 09/22/2025 Active Celecoxib 200 MG Capsule Oral; Duration: 90 Days Unknown Gabapentin 300 MG Capsule TAKE 2 CAPSULES BY MOUTH 3 TIMES A DAY Oral; Duration: 90 Days Unknown Social History Tobacco Use: Social History Observation Description Date Details (start date - stop date) Never Smoker 02/25/1976 - 02/24/1983 Sex Assigned At : Social History Observation Description Sex Assigned At Female Social History Miscellaneous: Social Info Question Answer Notes Advance Care Planning Are you your own decision-maker Yes Do you have Power of Attorne y for Health or Medical? Yes Do you have a power of defense attorney for health? Yes Do you have power of defense attorney for Medical ? Yes Advance Directive Healthcare Proxy pre sent (someone designated to make medical decisions),Durable Power of Rehab/Pre Vocational Counselor for Healthcare Household: Social Info Question Answer Notes Household Marital status: Drug/Alcohol: Social Info Question Answer Notes AUDIT-C (Standard) Did you have a drink containing alcohol in the past year? Yes How often did you have six or more drinks on one occasion in the past year? Never (0 point) Tobacco Use: Social Info Question Answer Notes Tobacco Control (Standard) Tobacco use: Nonsmoker When did you start smoking? 02/25/1976 When did you stop smoking? 02/24/1983 How long has it been since you last smoked? 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 Den ies Do you drink alcohol? No Problems Problem Type SNOMED Code ICD Code Onset Dates Problem Status W/U Status Risk Notes Problem Severe recurrent major depression without psychotic features (48993442) Major depressive disorder, recurrent severe without psychotic features (F33.2) Active confirmed Problem Generalized anxiety disorder (17008501) Generalized anxiety disorder (F41.1) Active confirmed Problem Binge eating disorder (564088400) Binge eating disorder (F50.81) Active confirmed Problem Attention deficit hyperactivity disorder (001371249) ADHD (attention deficit hyperactivity disorder), combined type (F90.2) Active confirmed Problem Mild neurocognitive disorder (458354644) Mild neurocognitive disorder (G31.84) Active confirmed Vital Signs Heart Rate 94 /min 06/24/2025 Height-cm 157.48 cm 06/24/2025 Blood pressure diastolic 68 mm Hg 06/24/2025 Weight-kg 56.25 kg 06/24/2025 Height 62.00 in 06/24/2025 Blood pressure systolic 106 mm Hg 06/24/2025 Weight 124 lbs 06/24/2025 BMI 22.68 kg/m2 06/24/2025 Encounters Encounter Location Date Provider Diagnosis [facility] [address] [place] [place] [address] 08/17/2024 Stella Kurilla Major depressive disorder, recurrent severe without psychotic features F33.2 ; Generalized anxiety disorder F41.1 and ADHD (attention deficit hyperactivity disorder), combined type F90.2 [facility] [employer] [facility] [address] [place] [address] [place] [address] 08/26/2024 Geovani Jernigan Major depressive disorder, recurrent severe without psychotic features F33.2 and Generalized anxiety disorder F41.1 [facility] [address] [place] [address] [place] [address] 09/23/2024 Geovani Jernigan Major depressive disorder, recurrent severe without psychotic features F33.2 and Generalized anxiety disorder F41.1 [facility] [address] [place] [address] [place] [address] 09/28/2024 Stella Kurilla Major depressive disorder, recurrent severe without psychotic features F33.2 ; Generalized anxiety disorder F41.1 and ADHD (attention deficit hyperactivity disorder), combined type F90.2 [facility] [address] [place] [address] [place] [address] 10/07/2024 Geovani Jernigan Major depressive disorder, recurrent severe without psychotic features F33.2 and Generalized anxiety disorder F41.1 [facility], [facility] [address] [place] [place] [address] 10/19/2024 Geovani Jernigan Major depressive disorder, recurrent severe without psychotic features F33.2 and Generalized anxiety disorder F41.1 [facility], [facility] [address] [facility] [address] [place] [address] 10/26/2024 Stella High Encounter for screen ing for depression Z13.31 ; Encounter for screening for cardiovascular disorders Z13.6 ; Major depressive disorder, recurrent severe without psychotic features F33.2 ; Generalized anxiety disorder F41.1 and ADHD (attention deficit hyperactivity disorder), combined type F90.2 [facility], [facility] [address] [facility] [address] [place] [address] 11/02/2024 Geovani Jernigan Encounter for screen ing for depression Z13.31 ; Major depressive disorder, recurrent severe without psychotic features F33.2 ; Vascular dementia without behavioral disturbance F01.50 and Generalized anxiety disorder F41.1 [facility], [facility] [address] [facility] [address] [place] [address] 11/16/2024 Geovani Jernigan Major depressive disorder, recurrent severe without psychotic features F33.2 ; Generalized anxiety disorder F41.1 and Encounter for screening for depression Z13.31 [facility], [place] [address] [facility] [address] [place] [address] 11/23/2024 Stella High Encounter for screen ing for depression Z13.31 ; Encounter for screening for cardiovascular disorders Z13.6 ; Major depressive disorder, recurrent severe without psychotic features F33.2 ; Generalized anxiety disorder F41.1 and ADHD (attention deficit hyperactivity disorder), combined type F90.2 [facility], [facility] [address] [facility] [address] [place] [address] 11/30/2024 Geovani Jernigan Major depressive disorder, recurrent severe without psychotic features F33.2 and Generalized anxiety disorder F41.1 [facility], [place] [address] [facility] [address] [place] [address] 12/22/2024 Geovani Jernigan Encounter for screen ing for depression Z13.31 [place] [address] [place] [address] 12/23/2024 Stella Kurilla Major depressive disorder, recurrent severe without psychotic features F33.2 ; Generalized anxiety disorder F41.1 ; ADHD (attention deficit hyperactivity disorder), combined type F90.2 ; Encounter for screening for depression Z13.31 and Encounter for screening for cardiovascular disorders Z13.6 [facility] [address] [place] [address] 01/17/2025 Geovani Jernigan Encounter for screen ing for depression Z13.31 ; Major depressive disorder, recurrent severe without psychotic features F33.2 and Generalized anxiety disorder F41.1 [facility] [address] [place] [address] 02/07/2025 Geovani Jernigan Encounter for screen ing for depression Z13.31 ; Major depressive disorder, recurrent severe without psychotic features F33.2 and Generalized anxiety disorder F41.1 [place] [address] [place] [address] 03/24/2025 Stella Kurilla Major depressive disorder, recurrent severe without psychotic features F33.2 ; Generalized anxiety disorder F41.1 and ADHD (attention deficit hyperactivity disorder), combined type F90.2 [place] [address] [place] [address] 03/25/2025 Geovani Jernigan Major depressive disorder, recurrent severe without psychotic features F33.2 and Generalized anxiety disorder F41.1 [place] [address] [facility] [address] [place] [address] 05/03/2025 Geovani Jernigan Major depressive disorder, recurrent severe without psychotic features F33.2 and Generalized anxiety disorder F41.1 [place] [address] [place] [address] 06/09/2025 Geovani Jernigan Major depressive disorder, recurrent severe without psychotic features F33.2 and Generalized anxiety disorder F41.1 [place] [address] [place] [address] 06/24/2025 Stella Kurilla Major depressive disorder, recurrent severe without psychotic features F33.2 ; Generalized anxiety disorder F41.1 ; ADHD (attention deficit hyperactivity disorder), combined type F90.2 and Mild neurocognitive disorder G31.84 [facility] [address] [place] [address] 11/25/2024 Stella Anila Major depressive disorder, recurrent severe without psychotic features F33.2 [place] [address] [facility] [address] [place] [address] 11/26/2024 Stella High [place] [address] [facility] [address] [place] [address] 11/26/2024 Stella Anila Major depressive disorder, recurrent severe without psychotic features F33.2 [facility] [address] [facility] [address] [place] [address] 11/26/2024 Stella High [place] [address] [address] [facility] [address] [facility] [address] [place] [address] 11/29/2024 Stella High [place] [address] [address] [facility] [address] [facility] [address] [place] [address] 01/07/2025 Stella High Assessments Encounter Date Diagnosis (ICD Code) Assessment Notes Treatment Notes Treatment Clinical Notes Section Notes 08/17/2024 Major depressive disorder, recurrent severe without psychotic features (ICD-10 - F33.2) Serotonin syndrome is a potentially life threatening drug reaction that causes the body to have too much serotonin, a chemical produced by nerve cells. -Causes: Serotonin syndrome most often occurs when two or more drugs that affect the body's level of serotonin are taken together at the same time. The drugs cause too much serotonin to be released or to remain in the brain area. For example, you can develop this syndrome if you take migraine medicines called triptans together with antidepressants called selective serotonin reuptake inhibitors (SSRIs) and selective serotonin/norepin ephrine reuptake inhibitors (SSNRIs). Talk to your doctor before stopping any medication. -Serotonin syndrome is more likely to occur when you first start or increase the medicine. -Drugs of abuse, such as ecstasy and LSD have also been associated with serotonin syndrome. -Symptoms: agitation or restlessness, diarrhea, fast heart rate and high blood pressure, hallucinations, loss of coordination, nausea, overactive reflexes, vomiting, sweating, tremor/shivering, fever. If you experience these symptoms, seek emergency care right away. Patient had reduction in suicidal ideation and/or behavior upon follow-up assessment within 120 days of index assessment ([id number]) 08/26/2024 Major depressive disorder, recurrent severe without psychotic features (ICD-10 - F33.2) 63 year old female seen today for initial assessment to start individual psychotherapy . Noted that she has seen Ivonne Lomax for medication therapy twice but had seen Dr Thomas prior. Hx of depression and anxiety reported by client which she believes have been present for as long as she can recall. Believes depression has been worse through out her life. No psych admissions reported by client but stated she has been to out patient psychotherapy , used to see a therapist here but did not feel it was a good fit. Client born and grew up in [place], [place]. Described childhood as good and happy but poor. Relationship with father who in 2015 was good while relationship with mother no so good but getting better. Client has been 47 years and has two children with , son and daughter who she has a good relationship with. Client is one of three, two sisters but one sister in 2019. 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 08/26/2024 Generalized anxiety disorder (ICD-10 - F41.1) 63 year old female seen today for initial assessment to start individual psychotherapy . Noted that she has seen Ivonne Lomax for medication therapy twice but had seen Dr Thomas prior. Hx of depression and anxiety reported by client which she believes have been present for as long as she can recall. Believes depression has been worse through out her life. No psych admissions reported by client but stated she has been to out patient psychotherapy , used to see a therapist here but did not feel it was a good fit. Client born and grew up in [place], [place]. Described childhood as good and happy but poor. Relationship with father who in 2015 was good while relationship with mother no so good but getting better. Client has been 47 years and has two children with , son and daughter who she has a good relationship with. Client is one of three, two sisters but one sister in 2019. 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 09/23/2024 Major depressive disorder, recurrent severe without psychotic features (ICD-10 - F33.2) 63 year old female seen today for initial assessment to start individual psychotherapy . Noted that she has seen Ivonne Lomax for medication therapy twice but had seen Dr Thomas prior. Hx of depression and anxiety reported by client which she believes have been present for as long as she can recall. Believes depression has been worse through out her life. No psych admissions reported by client but stated she has been to out patient psychotherapy , used to see a therapist here but did not feel it was a good fit. Client born and grew up in [place], [place]. Described childhood as good and happy but poor. Relationship with father who in 2015 was good while relationship with mother no so good but getting better. Client has been 47 years and has two children with , son and daughter who she has a good relationship with. Client is one of three, two sisters but one sister in 2019. 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 09/23/2024 Generalized anxiety disorder (ICD-10 - F41.1) 63 year old female seen today for initial assessment to start individual psychotherapy . Noted that she has seen Ivonne Lomax for medication therapy twice but had seen Dr Thomas prior. Hx of depression and anxiety reported by client which she believes have been present for as long as she can recall. Believes depression has been worse through out her life. No psych admissions reported by client but stated she has been to out patient psychotherapy , used to see a therapist here but did not feel it was a good fit. Client born and grew up in [place], [place]. Described childhood as good and happy but poor. Relationship with father who in 2015 was good while relationship with mother no so good but getting better. Client has been 47 years and has two children with , son and daughter who she has a good relationship with. Client is one of three, two sisters but one sister in 2019. 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 09/28/2024 Major depressive disorder, recurrent severe without psychotic features (ICD-10 - F33.2) Serotonin syndrome is a potentially life threatening drug reaction that causes the body to have too much serotonin, a chemical produced by nerve cells. -Causes: Serotonin syndrome most often occurs when two or more drugs that affect the body's level of serotonin are taken together at the same time. The drugs cause too much serotonin to be released or to remain in the brain area. For example, you can develop this syndrome if you take migraine medicines called triptans together with antidepressants called selective serotonin reuptake inhibitors (SSRIs) and selective serotonin/norepin ephrine reuptake inhibitors (SSNRIs). Talk to your doctor before stopping any medication. -Serotonin syndrome is more likely to occur when you first start or increase the medicine. -Drugs of abuse, such as ecstasy and LSD have also been associated with serotonin syndrome. -Symptoms: agitation or restlessness, diarrhea, fast heart rate and high blood pressure, hallucinations, loss of coordination, nausea, overactive reflexes, vomiting, sweating, tremor/shivering, fever. If you experience these symptoms, seek emergency care right away. 10/07/2024 Major depressive disorder, recurrent severe without psychotic features (ICD-10 - F33.2) 63 year old female seen today for initial assessment to start individual psychotherapy . Noted that she has seen Ivonne Lomax for medication therapy twice but had seen Dr Thomas prior. Hx of depression and anxiety reported by client which she believes have been present for as long as she can recall. Believes depression has been worse through out her life. No psych admissions reported by client but stated she has been to out patient psychotherapy , used to see a therapist here but did not feel it was a good fit. Client born and grew up in [place], [place]. Described childhood as good and happy but poor. Relationship with father who in 2015 was good while relationship with mother no so good but getting better. Client has been 47 years and has two children with , son and daughter who she has a good relationship with. Client is one of three, two sisters but one sister in 2019. 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 10/07/2024 Generalized anxiety disorder (ICD-10 - F41.1) 63 year old female seen today for initial assessment to start individual psychotherapy . Noted that she has seen Ivonne Lomax for medication therapy twice but had seen Dr Thomas prior. Hx of depression and anxiety reported by client which she believes have been present for as long as she can recall. Believes depression has been worse through out her life. No psych admissions reported by client but stated she has been to out patient psychotherapy , used to see a therapist here but did not feel it was a good fit. Client born and grew up in [place], [place]. Described childhood as good and happy but poor. Relationship with father who in 2015 was good while relationship with mother no so good but getting better. Client has been 47 years and has two children with , son and daughter who she has a good relationship with. Client is one of three, two sisters but one sister in 2019. 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 10/19/2024 Major depressive disorder, recurrent severe without psychotic features (ICD-10 - F33.2) 63 year old female seen today for initial assessment to start individual psychotherapy . Noted that she has seen Ivonne Lomax for medication therapy twice but had seen Dr Thomas prior. Hx of depression and anxiety reported by client which she believes have been present for as long as she can recall. Believes depression has been worse through out her life. No psych admissions reported by client but stated she has been to out patient psychotherapy , used to see a therapist here but did not feel it was a good fit. Client born and grew up in [place], [place]. Described childhood as good and happy but poor. Relationship with father who in 2015 was good while relationship with mother no so good but getting better. Client has been 47 years and has two children with , son and daughter who she has a good relationship with. Client is one of three, two sisters but one sister in 2019. 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 10/19/2024 Generalized anxiety disorder (ICD-10 - F41.1) 63 year old female seen today for initial assessment to start individual psychotherapy . Noted that she has seen Ivonne Lomax for medication therapy twice but had seen Dr Thomas prior. Hx of depression and anxiety reported by client which she believes have been present for as long as she can recall. Believes depression has been worse through out her life. No psych admissions reported by client but stated she has been to out patient psychotherapy , used to see a therapist here but did not feel it was a good fit. Client born and grew up in [place], [place]. Described childhood as good and happy but poor. Relationship with father who in 2015 was good while relationship with mother no so good but getting better. Client has been 47 years and has two children with , son and daughter who she has a good relationship with. Client is one of three, two sisters but one sister in 2019. 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 10/26/2024 Encounter for screening for depression (ICD-10 - Z13.31) 11/02/2024 Major depressive disorder, recurrent severe without psychotic features (ICD-10 - F33.2) 63 year old female seen today for initial assessment to start individual psychotherapy . Noted that she has seen Ivonne Lomax for medication therapy twice but had seen Dr Thomas prior. Hx of depression and anxiety reported by client which she believes have been present for as long as she can recall. Believes depression has been worse through out her life. No psych admissions reported by client but stated she has been to out patient psychotherapy , used to see a therapist here but did not feel it was a good fit. Client born and grew up in [place], [place]. Described childhood as good and happy but poor. Relationship with father who in 2015 was good while relationship with mother no so good but getting better. Client has been 47 years and has two children with , son and daughter who she has a good relationship with. Client is one of three, two sisters but one sister in 2019. 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 11/16/2024 Major depressive disorder, recurrent severe without psychotic features (ICD-10 - F33.2) 63 year old female seen today for initial assessment to start individual psychotherapy . Noted that she has seen Ivonne Lomax for medication therapy twice but had seen Dr Thomas prior. Hx of depression and anxiety reported by client which she believes have been present for as long as she can recall. Believes depression has been worse through out her life. No psych admissions reported by client but stated she has been to out patient psychotherapy , used to see a therapist here but did not feel it was a good fit. Client born and grew up in [place], [place]. Described childhood as good and happy but poor. Relationship with father who in 2015 was good while relationship with mother no so good but getting better. Client has been 47 years and has two children with , son and daughter who she has a good relationship with. Client is one of three, two sisters but one sister in 2019. 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 11/16/2024 Generalized anxiety disorder (ICD-10 - F41.1) 63 year old female seen today for initial assessment to start individual psychotherapy . Noted that she has seen Ivonne Lomax for medication therapy twice but had seen Dr Thomas prior. Hx of depression and anxiety reported by client which she believes have been present for as long as she can recall. Believes depression has been worse through out her life. No psych admissions reported by client but stated she has been to out patient psychotherapy , used to see a therapist here but did not feel it was a good fit. Client born and grew up in [place], [place]. Described childhood as good and happy but poor. Relationship with father who in 2016 was good while relationship with mother no so good but getting better. Client has been 47 years and has two children with , son and daughter who she has a good relationship with. Client is one of three, two sisters but one sister in 2019. 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 11/02/2024 Encounter for screening for depression (ICD-10 - Z13.31) 63 year old female seen today for initial assessment to start individual psychotherapy . Noted that she has seen Ivonne Lomax for medication therapy twice but had seen Dr Thomas prior. Hx of depression and anxiety reported by client which she believes have been present for as long as she can recall. Believes depression has been worse through out her life. No psych admissions reported by client but stated she has been to out patient psychotherapy , used to see a therapist here but did not feel it was a good fit. Client born and grew up in [place], [place]. Described childhood as good and happy but poor. Relationship with father who in 2015 was good while relationship with mother no so good but getting better. Client has been 47 years and has two children with , son and daughter who she has a good relationship with. Client is one of three, two sisters but one sister in 2019. 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 11/25/2024 Major depressive disorder, recurrent severe without psychotic features (ICD-10 - F33.2) 11/26/2024 Major depressive disorder, recurrent severe without psychotic features (ICD-10 - F33.2) 11/30/2024 Major depressive disorder, recurrent severe without psychotic features (ICD-10 - F33.2) 63 year old female seen today for initial assessment to start individual psychotherapy . Noted that she has seen Ivonne Lomax for medication therapy twice but had seen Dr Thomas prior. Hx of depression and anxiety reported by client which she believes have been present for as long as she can recall. Believes depression has been worse through out her life. No psych admissions reported by client but stated she has been to out patient psychotherapy , used to see a therapist here but did not feel it was a good fit. Client born and grew up in [place]. Described childhood as good and happy but poor. Relationship with father who in 2015 was good while relationship with mother no so good but getting better. Client has been 47 years and has two children with , son and daughter who she has a good relationship with. Client is one of three, two sisters but one sister in 2019. 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 11/30/2024 Generalized anxiety disorder (ICD-10 - F41.1) 63 year old female seen today for initial assessment to start individual psychotherapy . Noted that she has seen Ivonne Lomax for medication therapy twice but had seen Dr Thomas prior. Hx of depression and anxiety reported by client which she believes have been present for as long as she can recall. Believes depression has been worse through out her life. No psych admissions reported by client but stated she has been to out patient psychotherapy , used to see a therapist here but did not feel it was a good fit. Client born and grew up in [place], [place]. Described childhood as good and happy but poor. Relationship with father who in 2015 was good while relationship with mother no so good but getting better. Client has been 47 years and has two children with , son and daughter who she has a good relationship with. Client is one of three, two sisters but one sister in 2019. 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 12/22/2024 Encounter for screening for depression (ICD-10 - Z13.31) 63 year old female seen today for initial assessment to start individual psychotherapy . Noted that she has seen Ivonne Lomax for medication therapy twice but had seen Dr Thomas prior. Hx of depression and anxiety reported by client which she believes have been present for as long as she can recall. Believes depression has been worse through out her life. No psych admissions reported by client but stated she has been to out patient psychotherapy , used to see a therapist here but did not feel it was a good fit. Client born and grew up in [place]. Described childhood as good and happy but poor. Relationship with father who in 2015 was good while relationship with mother no so good but getting better. Client has been 47 years and has two children with , son and daughter who she has a good relationship with. Client is one of three, two sisters but one sister in 2019. 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 12/23/2024 Major depressive disorder, recurrent severe without psychotic features (ICD-10 - F33.2) Serotonin syndrome is a potentially life threatening drug reaction that causes the body to have too much serotonin, a chemical produced by nerve cells. -Causes: Serotonin syndrome most often occurs when two or more drugs that affect the body's level of serotonin are taken together at the same time. The drugs cause too much serotonin to be released or to remain in the brain area. For example, you can develop this syndrome if you take migraine medicines called triptans together with antidepressants called selective serotonin reuptake inhibitors (SSRIs) and selective serotonin/norepin ephrine reuptake inhibitors (SSNRIs). Talk to your doctor before stopping any medication. -Serotonin syndrome is more likely to occur when you first start or increase the medicine. -Drugs of abuse, such as ecstasy and LSD have also been associated with serotonin syndrome. -Symptoms: agitation or restlessness, diarrhea, fast heart rate and high blood pressure, hallucinations, loss of coordination, nausea, overactive reflexes, vomiting, sweating, tremor/shivering, fever. If you experience these symptoms, seek emergency care right away. 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 Noted that she has seen Ivonne Lomax for medication therapy twice but had seen Dr Thomas prior. Hx of depression and anxiety reported by client which she believes have been present for as long as she can recall. Believes depression has been worse through out her life. No psych admissions reported by client but stated she has been to out patient psychotherapy , used to see a therapist here but did not feel it was a good fit. Client born and grew up in [place]. Described childhood as good and happy but poor. Relationship with father who in 2015 was good while relationship with mother no so good but getting better. Client has been 47 years and has two children with , son and daughter who she has a good relationship with. Client is one of three, two sisters but one sister in 2019. 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 01/17/2025 Encounter for screening for depression (ICD-10 - Z13.31) 63 year old female seen today for initial assessment to start individual psychotherapy . Noted that she has seen Ivonne Lomax for medication therapy twice but had seen Dr Thomas prior. Hx of depression and anxiety reported by client which she believes have been present for as long as she can recall. Believes depression has been worse through out her life. No psych admissions reported by client but stated she has been to out patient psychotherapy , used to see a therapist here but did not feel it was a good fit. Client born and grew up in [place]. Described childhood as good and happy but poor. Relationship with father who in 2015 was good while relationship with mother no so good but getting better. Client has been 47 years and has two children with , son and daughter who she has a good relationship with. Client is one of three, two sisters but one sister in 2019. 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 02/07/2025 Major depressive disorder, recurrent severe without psychotic features (ICD-10 - F33.2) 63 year old female seen today for initial assessment to start individual psychotherapy . Noted that she has seen Ivonne Lomax for medication therapy twice but had seen Dr Thomas prior. Hx of depression and anxiety reported by client which she believes have been present for as long as she can recall. Believes depression has been worse through out her life. No psych admissions reported by client but stated she has been to out patient psychotherapy , used to see a therapist here but did not feel it was a good fit. Client born and grew up in [place]. Described childhood as good and happy but poor. Relationship with father who in 2015 was good while relationship with mother no so good but getting better. Client has been 47 years and has two children with , son and daughter who she has a good relationship with. Client is one of three, two sisters but one sister in 2019. 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 03/25/2025 Major depressive disorder, recurrent severe without psychotic features (ICD-10 - F33.2) 63 year old female seen today for initial assessment to start individual psychotherapy . Noted that she has seen Ivonne Lomax for medication therapy twice but had seen Dr Thomas prior. Hx of depression and anxiety reported by client which she believes have been present for as long as she can recall. Believes depression has been worse through out her life. No psych admissions reported by client but stated she has been to out patient psychotherapy , used to see a therapist here but did not feel it was a good fit. Client born and grew up in [place]. Described childhood as good and happy but poor. Relationship with father who in 2015 was good while relationship with mother no so good but getting better. Client has been 47 years and has two children with , son and daughter who she has a good relationship with. Client is one of three, two sisters but one sister in 2019. 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 03/25/2025 Generalized anxiety disorder (ICD-10 - F41.1) 63 year old female seen today for initial assessment to start individual psychotherapy . Noted that she has seen Ivonne Lomax for medication therapy twice but had seen Dr Thomas prior. Hx of depression and anxiety reported by client which she believes have been present for as long as she can recall. Believes depression has been worse through out her life. No psych admissions reported by client but stated she has been to out patient psychotherapy , used to see a therapist here but did not feel it was a good fit. Client born and grew up in [place]. Described childhood as good and happy but poor. Relationship with father who in 2015 was good while relationship with mother no so good but getting better. Client has been 47 years and has two children with , son and daughter who she has a good relationship with. Client is one of three, two sisters but one sister in 2019. 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 05/03/2025 Major depressive disorder, recurrent severe without psychotic features (ICD-10 - F33.2) 63 year old female seen today for initial assessment to start individual psychotherapy . Noted that she has seen Ivonne Lomax for medication therapy twice but had seen Dr Thomas prior. Hx of depression and anxiety reported by client which she believes have been present for as long as she can recall. Believes depression has been worse through out her life. No psych admissions reported by client but stated she has been to out patient psychotherapy , used to see a therapist here but did not feel it was a good fit. Client born and grew up in [place]. Described childhood as good and happy but poor. Relationship with father who in 2015 was good while relationship with mother no so good but getting better. Client has been 47 years and has two children with , son and daughter who she has a good relationship with. Client is one of three, two sisters but one sister in 2019. 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 05/03/2025 Generalized anxiety disorder (ICD-10 - F41.1) 63 year old female seen today for initial assessment to start individual psychotherapy . Noted that she has seen Ivonne Lomax for medication therapy twice but had seen Dr Thomas prior. Hx of depression and anxiety reported by client which she believes have been present for as long as she can recall. Believes depression has been worse through out her life. No psych admissions reported by client but stated she has been to out patient psychotherapy , used to see a therapist here but did not feel it was a good fit. Client born and grew up in [place]. Described childhood as good and happy but poor. Relationship with father who in 2015 was good while relationship with mother no so good but getting better. Client has been 47 years and has two children with , son and daughter who she has a good relationship with. Client is one of three, two sisters but one sister in 2019. 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 06/09/2025 Major depressive disorder, recurrent severe without psychotic features (ICD-10 - F33.2) 63 year old female seen today for initial assessment to start individual psychotherapy . Noted that she has seen Ivonne Lomax for medication therapy twice but had seen Dr Thomas prior. Hx of depression and anxiety reported by client which she believes have been present for as long as she can recall. Believes depression has been worse through out her life. No psych admissions reported by client but stated she has been to out patient psychotherapy , used to see a therapist here but did not feel it was a good fit. Client born and grew up in [place]. Described childhood as good and happy but poor. Relationship with father who in 2015 was good while relationship with mother no so good but getting better. Client has been 47 years and has two children with , son and daughter who she has a good relationship with. Client is one of three, two sisters but one sister in 2019. 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 06/09/2025 Generalized anxiety disorder (ICD-10 - F41.1) 63 year old female seen today for initial assessment to start individual psychotherapy . Noted that she has seen Ivonne Lomax for medication therapy twice but had seen Dr Thomas prior. Hx of depression and anxiety reported by client which she believes have been present for as long as she can recall. Believes depression has been worse through out her life. No psych admissions reported by client but stated she has been to out patient psychotherapy , used to see a therapist here but did not feel it was a good fit. Client born and grew up in [place]. Described childhood as good and happy but poor. Relationship with father who in 2015 was good while relationship with mother no so good but getting better. Client has been 47 years and has two children with , son and daughter who she has a good relationship with. Client is one of three, two sisters but one sister in 2019. 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 06/24/2025 Major depressive disorder, recurrent severe without psychotic features (ICD-10 - F33.2) Serotonin syndrome is a potentially life threatening drug reaction that causes the body to have too much serotonin, a chemical produced by nerve cells. -Causes: Serotonin syndrome most often occurs when two or more drugs that affect the body's level of serotonin are taken together at the same time. The drugs cause too much serotonin to be released or to remain in the brain area. For example, you can develop this syndrome if you take migraine medicines called triptans together with antidepressants called selective serotonin reuptake inhibitors (SSRIs) and selective serotonin/norepin ephrine reuptake inhibitors (SSNRIs). Talk to your doctor before stopping any medication. -Serotonin syndrome is more likely to occur when you first start or increase the medicine. -Drugs of abuse, such as ecstasy and LSD have also been associated with serotonin syndrome. -Symptoms: agitation or restlessness, diarrhea, fast heart rate and high blood pressure, hallucinations, loss of coordination, nausea, overactive reflexes, vomiting, sweating, tremor/shivering, fever. If you experience these symptoms, seek emergency care right away. 06/24/2025 Generalized anxiety disorder (ICD-10 - F41.1) 02/07/2025 Encounter for screening for depression (ICD-10 - Z13.31) 63 year old female seen today for initial assessment to start individual psychotherapy . Noted that she has seen Ivonne Lomax for medication therapy twice but had seen Dr Thomas prior. Hx of depression and anxiety reported by client which she believes have been present for as long as she can recall. Believes depression has been worse through out her life. No psych admissions reported by client but stated she has been to out patient psychotherapy , used to see a therapist here but did not feel it was a good fit. Client born and grew up in [place], [place]. Described childhood as good and happy but poor. Relationship with father who in 2015 was good while relationship with mother no so good but getting better. Client has been 47 years and has two children with , son and daughter who she has a good relationship with. Client is one of three, two sisters but one sister in 2019. 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 03/24/2025 Major depressive disorder, recurrent severe without psychotic features (ICD-10 - F33.2) Serotonin syndrome is a potentially life threatening drug reaction that causes the body to have too much serotonin, a chemical produced by nerve cells. -Causes: Serotonin syndrome most often occurs when two or more drugs that affect the body's level of serotonin are taken together at the same time. The drugs cause too much serotonin to be released or to remain in the brain area. For example, you can develop this syndrome if you take migraine medicines called triptans together with antidepressants called selective serotonin reuptake inhibitors (SSRIs) and selective serotonin/norepin ephrine reuptake inhibitors (SSNRIs). Talk to your doctor before stopping any medication. -Serotonin syndrome is more likely to occur when you first start or increase the medicine. -Drugs of abuse, such as ecstasy and LSD have also been associated with serotonin syndrome. -Symptoms: agitation or restlessness, diarrhea, fast heart rate and high blood pressure, hallucinations, loss of coordination, nausea, overactive reflexes, vomiting, sweating, tremor/shivering, fever. If you experience these symptoms, seek emergency care right away. 03/24/2025 Generalized anxiety disorder (ICD-10 - F41.1) 06/24/2025 ADHD (attention deficit hyperactivity disorder), combined type (ICD-10 - F90.2) Discussed risks/benefits/al ternatives to atomoxetine, including GI side effects, weight loss, irritability, constipation, sexual dysfunction, increase in blood pressure and liver damage. Patient denies any h/o cardiovascular disease, including hypertension, tachyarrhythmias. 02/07/2025 Generalized anxiety disorder (ICD-10 - F41.1) 63 year old female seen today for initial assessment to start individual psychotherapy . Noted that she has seen Ivonne Lomax for medication therapy twice but had seen Dr Thomas prior. Hx of depression and anxiety reported by client which she believes have been present for as long as she can recall. Believes depression has been worse through out her life. No psych admissions reported by client but stated she has been to out patient psychotherapy , used to see a therapist here but did not feel it was a good fit. Client born and grew up in [place], [place]. Described childhood as good and happy but poor. Relationship with father who in 2015 was good while relationship with mother no so good but getting better. Client has been 47 years and has two children with , son and daughter who she has a good relationship with. Client is one of three, two sisters but one sister in 2019. 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 01/17/2025 Generalized anxiety disorder (ICD-10 - F41.1) 63 year old female seen today for initial assessment to start individual psychotherapy . Noted that she has seen Ivonne Lomax for medication therapy twice but had seen Dr Thomas prior. Hx of depression and anxiety reported by client which she believes have been present for as long as she can recall. Believes depression has been worse through out her life. No psych admissions reported by client but stated she has been to out patient psychotherapy , used to see a therapist here but did not feel it was a good fit. Client born and grew up in [place], [place]. Described childhood as good and happy but poor. Relationship with father who in 2015 was good while relationship with mother no so good but getting better. Client has been 47 years and has two children with , son and daughter who she has a good relationship with. Client is one of three, two sisters but one sister in 2019. 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 12/23/2024 ADHD (attention deficit hyperactivity disorder), combined type (ICD-10 - F90.2) Discussed risks/benefits/al ternatives to atomoxetine, including GI side effects, weight loss, irritability, constipation, sexual dysfunction, increase in blood pressure and liver damage. Patient denies any h/o cardiovascular disease, including hypertension, tachyarrhythmias. 11/02/2024 Vascular dementia without behavioral disturbance (ICD-10 - F01.50) 63 year old female seen today for initial assessment to start individual psychotherapy . Noted that she has seen Ivonne Lomax for medication therapy twice but had seen Dr Thomas prior. Hx of depression and anxiety reported by client which she believes have been present for as long as she can recall. Believes depression has been worse through out her life. No psych admissions reported by client but stated she has been to out patient psychotherapy , used to see a therapist here but did not feel it was a good fit. Client born and grew up in [place], [place]. Described childhood as good and happy but poor. Relationship with father who in 2015 was good while relationship with mother no so good but getting better. Client has been 47 years and has two children with , son and daughter who she has a good relationship with. Client is one of three, two sisters but one sister in 2019. 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 10/26/2024 Encounter for screening for cardiovascular disorders (ICD-10 - Z13.6) 11/23/2024 Encounter for screening for cardiovascular disorders (ICD-10 - Z13.6) 09/28/2024 Generalized anxiety disorder (ICD-10 - F41.1) 08/17/2024 Generalized anxiety disorder (ICD-10 - F41.1) Patient had reduction in suicidal ideation and/or behavior upon follow-up assessment within 120 days of index assessment (M1357) 08/17/2024 ADHD (attention deficit hyperactivity disorder), combined type (ICD-10 - F90.2) Discussed risks/benefits/al ternatives to atomoxetine, including GI side effects, weight loss, irritability, constipation, sexual dysfunction, increase in blood pressure and liver damage. Patient denies any h/o cardiovascular disease, including hypertension, tachyarrhythmias. Patient had reduction in suicidal ideation and/or behavior upon follow-up assessment within 120 days of index assessment ([id number]) 09/28/2024 ADHD (attention deficit hyperactivity disorder), combined type (ICD-10 - F90.2) Discussed risks/benefits/al ternatives to atomoxetine, including GI side effects, weight loss, irritability, constipation, sexual dysfunction, increase in blood pressure and liver damage. Patient denies any h/o cardiovascular disease, including hypertension, tachyarrhythmias. 11/02/2024 Generalized anxiety disorder (ICD-10 - F41.1) 63 year old female seen today for initial assessment to start individual psychotherapy . Noted that she has seen Ivonne Lomax for medication therapy twice but had seen Dr Thomas prior. Hx of depression and anxiety reported by client which she believes have been present for as long as she can recall. Believes depression has been worse through out her life. No psych admissions reported by client but stated she has been to out patient psychotherapy , used to see a therapist here but did not feel it was a good fit. Client born and grew up in [place], [place]. Described childhood as good and happy but poor. Relationship with father who in 2015 was good while relationship with mother no so good but getting better. Client has been 47 years and has two children with , son and daughter who she has a good relationship with. Client is one of three, two sisters but one sister in 2019. 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 10/26/2024 Major depressive disorder, recurrent severe without psychotic features (ICD-10 - F33.2) Serotonin syndrome is a potentially life threatening drug reaction that causes the body to have too much serotonin, a chemical produced by nerve cells. -Causes: Serotonin syndrome most often occurs when two or more drugs that affect the body's level of serotonin are taken together at the same time. The drugs cause too much serotonin to be released or to remain in the brain area. For example, you can develop this syndrome if you take migraine medicines called triptans together with antidepressants called selective serotonin reuptake inhibitors (SSRIs) and selective serotonin/norepin ephrine reuptake inhibitors (SSNRIs). Talk to your doctor before stopping any medication. -Serotonin syndrome is more likely to occur when you first start or increase the medicine. -Drugs of abuse, such as ecstasy and LSD have also been associated with serotonin syndrome. -Symptoms: agitation or restlessness, diarrhea, fast heart rate and high blood pressure, hallucinations, loss of coordination, nausea, overactive reflexes, vomiting, sweating, tremor/shivering, fever. If you experience these symptoms, seek emergency care right away. 11/16/2024 Encounter for screening for depression (ICD-10 - Z13.31) 63 year old female seen today for initial assessment to start individual psychotherapy . Noted that she has seen Ivonne Lomax for medication therapy twice but had seen Dr Thomas prior. Hx of depression and anxiety reported by client which she believes have been present for as long as she can recall. Believes depression has been worse through out her life. No psych admissions reported by client but stated she has been to out patient psychotherapy , used to see a therapist here but did not feel it was a good fit. Client born and grew up in [place], [place]. Described childhood as good and happy but poor. Relationship with father who in 2015 was good while relationship with mother no so good but getting better. Client has been 47 years and has two children with , son and daughter who she has a good relationship with. Client is one of three, two sisters but one sister in 2019. 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 -Causes: Serotonin syndrome most often occurs when two or more drugs that affect the body's level of serotonin are taken together at the same time. The drugs cause too much serotonin to be released or to remain in the brain area. For example, you can develop this syndrome if you take migraine medicines called triptans together with antidepressants called selective serotonin reuptake inhibitors (SSRIs) and selective serotonin/norepin ephrine reuptake inhibitors (SSNRIs). Talk to your doctor before stopping any medication. -Serotonin syndrome is more likely to occur when you first start or increase the medicine. -Drugs of abuse, such as ecstasy and LSD have also been associated with serotonin syndrome. -Symptoms: agitation or restlessness, diarrhea, fast heart rate and high blood pressure, hallucinations, loss of coordination, nausea, overactive reflexes, vomiting, sweating, tremor/shivering, fever. If you experience these symptoms, seek emergency care right away. 12/23/2024 Encounter for screening for depression (ICD-10 - Z13.31) 06/24/2025 Mild neurocognitive disorder (ICD-10 - G31.84) SLUMS 22 06/24/2025 - MRI scheduled per PCP , will defer medicaiton at this time due to PCP currently evaluating 03/24/2025 ADHD (attention deficit hyperactivity disorder), combined type (ICD-10 - F90.2) Discussed risks/benefits/al ternatives to atomoxetine, including GI side effects, weight loss, irritability, constipation, sexual dysfunction, increase in blood pressure and liver damage. Patient denies any h/o cardiovascular disease, including hypertension, tachyarrhythmias. 11/23/2024 Generalized anxiety disorder (ICD-10 - F41.1) 12/23/2024 Encounter for screening for cardiovascular disorders (ICD-10 - Z13.6) 10/26/2024 Generalized anxiety disorder (ICD-10 - F41.1) 10/26/2024 ADHD (attention deficit hyperactivity disorder), combined type (ICD-10 - F90.2) Discussed risks/benefits/al ternatives to atomoxetine, including GI side effects, weight loss, irritability, constipation, sexual dysfunction, increase in blood pressure and liver damage. Patient denies any h/o cardiovascular disease, including hypertension, tachyarrhythmias. 11/23/2024 ADHD (attention deficit hyperactivity disorder), combined type (ICD-10 - F90.2) Discussed risks/benefits/al ternatives to atomoxetine, including GI side effects, weight loss, irritability, constipation, sexual dysfunction, increase in blood pressure and liver damage. Patient denies any h/o cardiovascular disease, including hypertension, tachyarrhythmias. 08/17/2024 Other Increase atomoxetine to 40mg daily for ADHD. Patient educated on all medications including potential benefits, side effects, risks. Educated on proper dosing schedule and importance of compliance. Cont counseling with Geovani -Assessment and treatment plan reviewed with patient. -Compliance with treatment plan importance discussed. -Discussed the risks/benefits of this medication -Discussed medication side effects. -Contact office if symptoms worsen. -Discussed that it can take up to 6-8 weeks to see full therapeutic effects of psychotropic medications. -Crisis prevention hotline 988. Memory-- treat ADHD and depression and will re-evaluate for organic NCD Patient had reduction in suicidal ideation and/or behavior upon follow-up assessment within 120 days of index assessment (M1357) 08/26/2024 Other Client participated in individual psychotherapy(CB T/Supportive) related to her hx of depression and anxiety. Based on today's session continued psychotherapy is recommended with no changes to treatment plan. Client presented to session well groomed and fully oriented with no risk of harm to self or others. Client verbal engaged and tearful through out session. Reported upon presentation that she has been okay since last seen on 06.17.2024 but has also felt stuck. Expressed frustration over medication not seeming to be anything for her, especially her ADHD medication. Client encouraged to speak to her provider regarding her frustration. Further shared that he has been experiencing a lot of sadness crying spells and feeling overwhelmed with everyday activities. Moreover has been struggling with having no motivation to do anything especially leaving her house. Session accordingly helped client idenitify distorted and irrational beliefs which continued to support and fuel her anxiety and depression. One such belief that she must be productive at all times and her hx of overestimating what if senarios. Client somewhat receptive to session feedback. Next session in two weeks. 63 year old female seen today for initial assessment to start individual psychotherapy . Noted that she has seen Ivonne Lomax for medication therapy twice but had seen Dr Thomas prior. Hx of depression and anxiety reported by client which she believes have been present for as long as she can recall. Believes depression has been worse through out her life. No psych admissions reported by client but stated she has been to out patient psychotherapy , used to see a therapist here but did not feel it was a good fit. Client born and grew up in [place], [place]. Described childhood as good and happy but poor. Relationship with father who in 2015 was good while relationship with mother no so good but getting better. Client has been 47 years and has two children with , son and daughter who she has a good relationship with. Client is one of three, two sisters but one sister in 2019. 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 09/23/2024 Other Client participated in individual psychotherapy(CB T/Supportive) related to her hx of anxiety and depression. Based on today's session continued psychotherapy is reommended with no changes to treatment. Client presented to session well groomed and fully oriented with no risk of harm to self or others. Client verbal engaged and tearful throughout session. Reported upon presentation that she has been okay with nothing having changed since last seen on 08.26.2024. Continues to experience frustration over not feeling any different of better from ADHD medication and continuing to lack motivation to do what she believes she needs to do. Noted that she feels useless most of the time as a result. Moreover does not believe she is getting restful sleep as she feels sleepy all of the time. Focus of session attempted to challenge client's false and distorted beliefs surrounding anxiety and depression. Voiced that she has to be in control all of the time as well as reiterating that she has to be productive all of time as well. Admitted that she struggles accepting that she is no longer who she used to be. Client more receptive to session feedback. Next session in two weeks. 63 year old female seen today for initial assessment to start individual psychotherapy . Noted that she has seen Ivonne Lomax for medication therapy twice but had seen Dr Thomas prior. Hx of depression and anxiety reported by client which she believes have been present for as long as she can recall. Believes depression has been worse through out her life. No psych admissions reported by client but stated she has been to out patient psychotherapy , used to see a therapist here but did not feel it was a good fit. Client born and grew up in [place], [place]. Described childhood as good and happy but poor. Relationship with father who in 2015 was good while relationship with mother no so good but getting better. Client has been 47 years and has two children with , son and daughter who she has a good relationship with. Client is one of three, two sisters but one sister in 2019. 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 Educated on proper dosing schedule and importance of compliance. Encouraged limitting use of cannabis, as this has shown to increase depressive symptoms, worsen anxiety and ADHD symptoms, decrease overall cognition. Psychoeducation done regarding marijuana; potential depressogenic, anxiogenic, and psychotogenic effects; potential blunting of therapeutic psychotropic effects. -Assessment and treatment plan reviewed with patient. -Compliance with treatment plan importance discussed. -Discussed the risks/benefits of this medication -Discussed medication side effects. -Contact office if symptoms worsen. -Discussed that it can take up to 6-8 weeks to see full therapeutic effects of psychotropic medications. -Crisis prevention hotline 988. 10/07/2024 Other Clinical Notes : Client participated in individual psychotherapy(CB T/Supportive) related to her hx of anxiety and depression. Based on today's session continued psychotherapy is reommended with no changes to treatment. Client presented to session well groomed and fully oriented with no risk of harm to self or others. Client verbal engaged and tearful throughout session. Reported upon presentation that she has been tired due to not getting much sleep especially last night. Noted that she has been getting about four to five of sleep a night and it is not restful. Initially reported not knowning why she is not sleeping well. Reiterated that her ADD medication is not really working and suspects it may be responsible for sleep problems. Primary focus of session centered on relationship she had with her mother given that she had earlier said she had a conflicted relationship with mother while she was alive. Conceded that she still is conflicted about their relationship. Client further admitted that she worries a lot about loosing and sister. Client stated when asked that she lives to much in the future and past. Conceded that she cannot enjoy her present for fear of the future and not being able to let go of the past. Client receptive to session feedback. Next session in two weeks. 63 year old female seen today for initial assessment to start individual psychotherapy . Noted that she has seen Ivonne Lomax for medication therapy twice but had seen Dr Thomas prior. Hx of depression and anxiety reported by client which she believes have been present for as long as she can recall. Believes depression has been worse through out her life. No psych admissions reported by client but stated she has been to out patient psychotherapy , used to see a therapist here but did not feel it was a good fit. Client born and grew up in [place], [place]. Described childhood as good and happy but poor. Relationship with father who in 2015 was good while relationship with mother no so good but getting better. Client has been 47 years and has two children with , son and daughter who she has a good relationship with. Client is one of three, two sisters but one sister in 2019. 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 Based on today's session continued psychotherapy is reommended with no changes to treatment. Client presented to session well groomed and fully oriented with no risk of harm to self or others. Client verbal and engaged through out session with improved mood and affect from previous session. Reported upon presentation that she has been good since last seen on 10.07.2024. Added that she and had a good weekend with two of her grandchildren. Fous of session centered on helping client identify and replace distorted thoughts and beliefs which have supported and fueled her depression and anxiety. Client also spoke about childhood memories and conflicts and their impact on her depression and anxiety. Client admitted that she has always worried even as a child. Client receptive to session feedback. Next session in two weeks. 63 year old female seen today for initial assessment to start individual psychotherapy . Noted that she has seen Ivonne Lomax for medication therapy twice but had seen Dr Thomas prior. Hx of depression and anxiety reported by client which she believes have been present for as long as she can recall. Believes depression has been worse through out her life. No psych admissions reported by client but stated she has been to out patient psychotherapy , used to see a therapist here but did not feel it was a good fit. Client born and grew up in [place], [place]. Described childhood as good and happy but poor. Relationship with father who in 2015 was good while relationship with mother no so good but getting better. Client has been 47 years and has two children with , son and daughter who she has a good relationship with. Client is one of three, two sisters but one sister in 2019. 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 Has decreased cannabis use, although UDT positive today she reports last use about a month ago. --could be caused by polypharmacy Decrease Trazodone to 50mg nightly, could also be contributing to low energy Decrease Buspar to 7.5mg TID -monitor for worsening anxiety Patient educated on all medications including potential benefits, side effects, risks. Educated on proper dosing schedule and importance of compliance. Cont counseling Consider additional cognitive testing if no response to decreased medications. -Assessment and treatment plan reviewed with patient. -Compliance with treatment plan importance discussed. -Discussed the risks/benefits of this medication -Discussed medication side effects. -Contact office if symptoms worsen. -Discussed that it can take up to 6-8 weeks to see full therapeutic effects of psychotropic medications. -Crisis prevention hotline 988. 11/02/2024 Other Clinical Notes : Clinical Notes: Clinical Notes: Client participated in individual psychotherapy(CB T/Supportive) related to her hx of anxiety and depression. Based on today's session continued psychotherapy is reommended with no changes to treatment. Client presented to session well groomed and fully oriented with no risk of harm to self or others. Client verbal, engaged and tearful through out session. Reported upon presentation that she has been pretty good since last seen on 10.19.2024. Added that she has been better since last seen as well. Focus of session on time line (of her life) that she was asked to complete during previous session to determine how how she got where she is at today. Client conceded that she has been stronger then she had previous believed due to time line. Admitted that she is is fearful of the future and being a burden to her family. Conceded as well that she is robbing her self of peace and sudhakar for fear of what might happen. Admitted that she needs to stop pretending and live more in the present. Next session in two weeks. 63 year old female seen today for initial assessment to start individual psychotherapy . Noted that she has seen Ivonne Lomax for medication therapy twice but had seen Dr Thomas prior. Hx of depression and anxiety reported by client which she believes have been present for as long as she can recall. Believes depression has been worse through out her life. No psych admissions reported by client but stated she has been to out patient psychotherapy , used to see a therapist here but did not feel it was a good fit. Client born and grew up in [place], [place]. Described childhood as good and happy but poor. Relationship with father who in 2015 was good while relationship with mother no so good but getting better. Client has been 47 years and has two children with , son and daughter who she has a good relationship with. Client is one of three, two sisters but one sister in 2019. 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 11/16/2024 Other Clinical Notes : Client participated in individual psychotherapy(CB T/Supportive) related to her hx of anxiety and depression. Based on today's session continued psychotherapy is reommended with no changes to treatment. Client presented to session well groomed and fully oriented with no risk of harm to self or others. Client verbal, engaged and tearful through out session. Reported upon presentation that she has been pretty good since last seen on 11.02.2024. Added that she and went to visit their son and his family this weekend in [place]. Noted that while she had a good time she did experience some anxiety prior to visit and while there. Session accordingly focused on helping client identify thoughts and beliefs responsible for anxiety and depression. Client spoke about worry over son's health and marriage. Admitted that she has a high need for certainty with regard to son's life. Session aslo addressed client's guilt over mother and how she has beat self up over mother's . Admitted that she harbors a lot regrets associated with mother's . Client receptive to session feedback. Next session in two weeks. 63 year old female seen today for initial assessment to start individual psychotherapy . Noted that she has seen Ivonne Lomax for medication therapy twice but had seen Dr Thomas prior. Hx of depression and anxiety reported by client which she believes have been present for as long as she can recall. Believes depression has been worse through out her life. No psych admissions reported by client but stated she has been to out patient psychotherapy , used to see a therapist here but did not feel it was a good fit. Client born and grew up in [place], [place]. Described childhood as good and happy but poor. Relationship with father who in 2015 was good while relationship with mother no so good but getting better. Client has been 47 years and has two children with , son and daughter who she has a good relationship with. Client is one of three, two sisters but one sister in 2019. 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 11/23/2024 Other Discontinue trazodone due to daytime grogginess Decrease buspar 5mg BID Increase atomoxetine to 60mg daily for ADHD symptoms Patient educated on all medications including potential benefits, side effects, risks. Educated on proper dosing schedule and importance of compliance. referral to the local chapter or national office of the Alzheimer's Association ( ; http://www.alz.or g), the Alzheimer's Disease Education and Referral [facility] (ADEAR) ( ; http://www.michelle.ni h.gov/Alzheimers/ ), -Assessment and treatment plan reviewed with patient. -Compliance with treatment plan importance discussed. -Discussed the risks/benefits of this medication -Discussed medication side effects. -Contact office if symptoms worsen. -Discussed that it can take up to 6-8 weeks to see full therapeutic effects of psychotropic medications. -Crisis prevention hotline 988. 11/30/2024 Other Client participated in individual psychotherapy(CB T/Supportive) related to her hx of anxiety and depression. Based on today's session continued psychotherapy is reommended with no changes to treatment. Client presented to session well groomed and fully oriented with no risk of harm to self or others. Client verbal, engaged and tearful through out session. Reported upon presentation that she has been okay since last seen on 11.16.2024. Added that she and had a nice and quiet Easter Friday at home with no company or plans. Believes she was able to have a relaxing day at home. Added that she has been worrying less about getting things done at home. Moreover has been more accepting of not having desire or motivation to get things done. 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 Admitted that a big reason for dreading the winter due to negative association with Ghassan and how her mother would ruin [place] for her and sisters. Conceded that she has unrealistic expectations about the winter. Client receptive to session feedbacl. Next session in two weeks. 63 year old female seen today for initial assessment to start individual psychotherapy . Noted that she has seen Ivonne Lomax for medication therapy twice but had seen Dr Thomas prior. Hx of depression and anxiety reported by client which she believes have been present for as long as she can recall. Believes depression has been worse through out her life. No psych admissions reported by client but stated she has been to out patient psychotherapy , used to see a therapist here but did not feel it was a good fit. Client born and grew up in [place], [place]. Described childhood as good and happy but poor. Relationship with father who in 2015 was good while relationship with mother no so good but getting better. Client has been 47 years and has two children with , son and daughter who she has a good relationship with. Client is one of three, two sisters but one sister in 2019. 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 12/22/2024 Other Client participated in individual psychotherapy(CB T/Supportive) related to her hx of anxiety and depression. Based on today's session continued psychotherapy is reommended with no changes to treatment. Client presented to session well groomed and fully oriented with no risk of harm to self or others. Client verbal and engaged throughout session. Reported upon presentation that she has been okay since last seen on 11.30.2024 and has been enjoying being out doors. When asked how her Mother's Day went client stated, it was just another day. Explained that her sons did not call or come by to see her for Mother's Day and have yet to say anything to her. Added that she does not plan on saying anything but plans on waiting what sons do for Father's Day. Remainder of session client spoke about family dynamincs and the role they have played in her hx of depression and anxiety. Shared that middle sister had always suspected that she was different from client and their younger sister. Middle sister had suspected that she was client's bio sister and client's father was not her bio father. 23[employer] testing confirmed that middle sister indeed was not her bio sister. Their mother had had an affair with her brother in law(sister's ) and he was middle sister's bio father. Client added this revelation changed the relationship between middle sister and their mother who always knew the truth but chose to saty quiet. Client admitted that middle sister growing up was mother's favoriate. Next session in three weeks. 63 year old female seen today for initial assessment to start individual psychotherapy . Noted that she has seen Ivonne Lomax for medication therapy twice but had seen Dr Thomas prior. Hx of depression and anxiety reported by client which she believes have been present for as long as she can recall. Believes depression has been worse through out her life. No psych admissions reported by client but stated she has been to out patient psychotherapy , used to see a therapist here but did not feel it was a good fit. Client born and grew up in [place], [place]. Described childhood as good and happy but poor. Relationship with father who in 2015 was good while relationship with mother no so good but getting better. Client has been 47 years and has two children with , son and daughter who she has a good relationship with. Client is one of three, two sisters but one sister in 2019. 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 12/23/2024 Other Increase atomoxetine to 80mg daily for ADHD management Patient educated on all medications including potential benefits, side effects, risks. Educated on proper dosing schedule and importance of compliance. -Assessment and treatment plan reviewed with patient. -Compliance with treatment plan importance discussed. -Discussed the risks/benefits of this medication -Discussed medication side effects. -Contact office if symptoms worsen. -Discussed that it can take up to 6-8 weeks to see full therapeutic effects of psychotropic medications. -Crisis prevention hotline 988. 01/17/2025 Other length Client participated in individual psychotherapy(CB T/Supportive) related to her hx of anxiety and depression. Based on today's session continued psychotherapy is reommended with no changes to treatment. Client presented to session well groomed and fully oriented with no risk of harm to self or others. Client verbal and engaged throughout session with appropriate mood and affect. Reported upon presentation that she has been pretty good since last seen on 12.22.2024. Added however that she is tried today after having spent a week for her two grandchldren. Noted that she was asked to come and babysit grandchilden by her son. Client vented at lent about her week with grandchildren and how son and his parent their children. Admitted that it was tough at times keeping quiet and not commenting on how they parent their children. Client expressed especially how 10 year granddaughter is allowed to dress. Fearful that granddaughter will put self in risky situations in the future if not now. Next session in two weeks. 63 year old female seen today for initial assessment to start individual psychotherapy . Noted that she has seen Ivonne Lomax for medication therapy twice but had seen Dr Thomas prior. Hx of depression and anxiety reported by client which she believes have been present for as long as she can recall. Believes depression has been worse through out her life. No psych admissions reported by client but stated she has been to out patient psychotherapy , used to see a therapist here but did not feel it was a good fit. Client born and grew up in [place], [place]. Described childhood as good and happy but poor. Relationship with father who in 2015 was good while relationship with mother no so good but getting better. Client has been 47 years and has two children with , son and daughter who she has a good relationship with. Client is one of three, two sisters but one sister in 2019. 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 02/07/2025 Other Client participated in individual psychotherapy(CB T/Supportive) related to her hx of anxiety and depression. Based on today's session continued psychotherapy is reommended with no changes to treatment. Client presented to session well groomed and fully oriented with no risk of harm to self or others. Client verbal and engaged throughout session with appropriate mood and affect. Reported upon presentation that she has okay but not sure since last seen on 01.17.2025. Added however that she is tired of being sick and tired most of the time. Noted that she has been having some stomach issues and continues to have very little energy. Stated that her blood pressure has been low and continues to take high blood pressure medication. Took her blood pressure last night and it was 96/65. Conceded that this is why she might be tired a lot and has very little energy. Client admitted that she struggles accepting that she can no longer do what she once was able to do. Moreover acknowledged that she needs to change her mind set and beliefs she grew up with regarding asking for help. Also needs to accept where she is at in life today until she can get some answers while focusing on what she can do. She did voice being excited about upcoming family vacation in three weeks. Client more receptive to session feedback. Next session in two weeks. 63 year old female seen today for initial assessment to start individual psychotherapy . Noted that she has seen Ivonne Lomax for medication therapy twice but had seen Dr Thomas prior. Hx of depression and anxiety reported by client which she believes have been present for as long as she can recall. Believes depression has been worse through out her life. No psych admissions reported by client but stated she has been to out patient psychotherapy , used to see a therapist here but did not feel it was a good fit. Client born and grew up in [place], [place]. Described childhood as good and happy but poor. Relationship with father who in 2016 was good while relationship with mother no so good but getting better. Client has been 47 years and has two children with , son and daughter who she has a good relationship with. Client is one of three, two sisters but one sister in 2019. 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 03/24/2025 Other Increase atomoxetine to 100mg daily for adhd management Patient educated on all medications including potential benefits, side effects, risks. Educated on proper dosing schedule and importance of compliance. -Assessment and treatment plan reviewed with patient. -Compliance with treatment plan importance discussed. -Discussed the risks/benefits of this medication -Discussed medication side effects. -Contact office if symptoms worsen. -Discussed that it can take up to 6-8 weeks to see full therapeutic effects of psychotropic medications. -Crisis prevention hotline 988. 03/25/2025 Other Client participated in individual psychotherapy(CB T/Supportive) related to her hx of anxiety and depression. Based on today's session continued psychotherapy is reommended with no changes to treatment. Client presented to session well groomed and fully oriented with no risk of harm to self or others. Client verbal and engaged throughout session with appropriate mood and affect. Reported upon presentation that she has been doing pretty good and has felt good, with some bad days, since last seen on 02.07.2025. Noted that vacation with son and his family went really well after being initially anxious about going. Added that did not go along due to his anxiety. Stated that has become more and more reluctant about leaving home, he is becoming a hermitt. Acknowledged that he needs to get out of the house more often and not be sucked into 's reluctance to leave home. Client spoke about how she and were affected by Covid; believes they have not fully recovered from rut they were in at the time. Stated that sometimes the effort of getting ready to leave home is not worth it. Session accordingly helped client examine thoughts and beliefs associated with not wanting to leave her home. Client receptive to session feedback. Next session in two weeks. 63 year old female seen today for initial assessment to start individual psychotherapy . Noted that she has seen Ivonne Lomax for medication therapy twice but had seen Dr Thomas prior. Hx of depression and anxiety reported by client which she believes have been present for as long as she can recall. Believes depression has been worse through out her life. No psych admissions reported by client but stated she has been to out patient psychotherapy , used to see a therapist here but did not feel it was a good fit. Client born and grew up in [place], [place]. Described childhood as good and happy but poor. Relationship with father who in 2015 was good while relationship with mother no so good but getting better. Client has been 47 years and has two children with , son and daughter who she has a good relationship with. Client is one of three, two sisters but one sister in 2019. 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 05/03/2025 Other Client participated in individual psychotherapy(CB T/Supportive) related to her hx of anxiety and depression. Based on today's session continued psychotherapy is reommended with no changes to treatment. Client presented to session well groomed and fully oriented with no risk of harm to self or others. Client verbal and engaged throughout session with appropriate mood and affect. Reported upon presentation that she has been doing pretty good since last seen with some good and bad days. Stated that she and recently spent four days with son and his family for grandparents' day. Noted that she enjoys spending time with her grandchildren and wished [place] was not so far away. Client added that she has lost 53 pounds and would like to loose four more pounds. Noted that she did not feel well yesterday and accomplished nothing. She continues on being hard on herself whenever she feeligs like she has not been productive. Conceded that he needs to be kinder to herself and not be so controlled by some her beliefs regarding being productive. Next session in two weeks. 63 year old female seen today for initial assessment to start individual psychotherapy . Noted that she has seen Ivonne Lomax for medication therapy twice but had seen Dr Thomas prior. Hx of depression and anxiety reported by client which she believes have been present for as long as she can recall. Believes depression has been worse through out her life. No psych admissions reported by client but stated she has been to out patient psychotherapy , used to see a therapist here but did not feel it was a good fit. Client born and grew up in [place], [place]. Described childhood as good and happy but poor. Relationship with father who in 2015 was good while relationship with mother no so good but getting better. Client has been 47 years and has two children with , son and daughter who she has a good relationship with. Client is one of three, two sisters but one sister in 2019. 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 06/09/2025 Other Client participated in individual psychotherapy(CB T/Supportive) related to her hx of anxiety and depression. Based on today's session continued psychotherapy is reommended with no changes to treatment. Client presented to session well groomed and fully oriented with no risk of harm to self or others. Client verbal and engaged throughout session with appropriate mood and affect. Reported upon presentation that she has been okay, amanda of since last seen on 05.03.2025. Added however that she woke up this morning in a bad mood and has gotten crabbier as the day has progressed. Initially stated not knowning why she woke up in a bad mood or has gotten crabby and crabbier. Added that while she has felt better overall she continues to question where she is at in life. Expressed concern about medication making her feel tired and sluggish and always wanting to sleep. Further shared that she had as meltdown the other day before she and went to babyt daughter's children. Client persists in being bothered that she does not have the energy or desire to do what she thinks she should be doing. Admitted that she does not allow self to relax and enjoy her detention. Session accordingly helped client identify any distorted and faulty thoughts and beliefs surrounding not allowing self to enjoy her detention. Client receptive to session feedback and inqueries. Next session in two weeks. 63 year old female seen today for initial assessment to start individual psychotherapy . Noted that she has seen Ivonne Lomax for medication therapy twice but had seen Dr Thomas prior. Hx of depression and anxiety reported by client which she believes have been present for as long as she can recall. Believes depression has been worse through out her life. No psych admissions reported by client but stated she has been to out patient psychotherapy , used to see a therapist here but did not feel it was a good fit. Client born and grew up in [place], [place]. Described childhood as good and happy but poor. Relationship with father who in 2015 was good while relationship with mother no so good but getting better. Client has been 47 years and has two children with , son and daughter who she has a good relationship with. Client is one of three, two sisters but one sister in 2019. 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 Plan Of Treatment Pending Test Test Name Order Date ADHD Testing 04/19/2024 Next Appt Details Provider Name:Stella Joe arnold, 11/01/2025 10:00:00 AM, [address], [facility] [address], [place], [address], Insurance Providers Payer Name Payer Address Payer Phone Subscriber Number Group Number Insured Name Patient Relationship to Insured Coverage Start Date Coverage End Date [employer] Re[employer] t/Advant[employer] e - Ppo [address] [place] [phone] [id number] VARUN SZYMANSKI Self - patient is the insured Medical (General) History Medical History History ICD Code Problems: Binge eating disorder Generalized anxiety disorder Long-term drug therapy Severe recurrent major depression HTN High Cholesterol Radial brachial pruritus DM 2 YANI Surgical History Surgery Date(Month/Year) Back surgery
--- OUTSIDE RECORDS SUMMARY | 2025-07-28 15:41 | XMS_ITS | Patient Health Record ---
Author Organization [employer] [place] ([address]) Address [address] [place] [id number] Care Team Providers Care Quick Mixer Operator Name Role Phone Vicente Edmondson Primary Care Provider Unavail able Vibha Mendenhall Unavailable [phone] Allergies Allergen (clinical drug ingredient) Drug/Non Drug Allergy documented on EMR Reaction Allergy Type Onset Date Status DARVON/DARVOCETTE (uncoded) itching Allergy Active Reason For Referral No Information Medications Medication SIG (Take, Route, Frequency, Duration) Notes Start Date End Date Status ATORVASTATIN 20 mg 1 tab(s) orally once a day; Duration: 30 day(s) Active ESOMEPRAZOLE 40 mg 1 cap(s) orally once a day; Duration: 30 day(s) Active PANTOPRAZOLE 40 mg 1 tab(s) orally once a day; Duration: 30 day(s) Active AMABELZ 0.5 mg-0.1 mg 1 tab(s) orally once a day; Duration: 28 day(s) Active MELATONIN 3 mg 1 tab(s) orally once a day (at bedtime) Active VITAMIN D3 2000 intl units as directed orally once a day; Duration: 30 day(s) Active Azelastine HCl 0.15 % 2 spray(s) intranasally 2 times a day; Duration: 30 Active Amabelz 0.5 MG-0.1 MG 1 TAB(S) ORALLY ONCE A DAY; Duration: 28 DAY(S) *Please review and pick correct strength-formulati on from [employer] options. If intended option is not shown, discontinue and re-order from Spot formerly [employer] Search* Active Triamcinolone Acetonide 0.1 % 1 kj applied topically 3 times a day; Duration: 7 day(s) Active SYNTHROID 25 mcg (0.025 mg) 1 tab(s) orally once a day; Duration: 30 day(s) Active Melatonin 3 MG 1 tab(s) orally once a day (at bedtime) Active CERAVE - 1 KJ APPLIED TOPICALLY 2 TIMES A DAY; Duration: 30 DAY(S) *Please review for potential replacement for e-prescription and drug interaction check* Active BUSPIRONE 10 mg 1 tab(s) orally 2 times a day; Duration: 30 day(s) Active Vitamin D3 50 MCG (2000 UT) as directed orally once a day; Duration: 30 day(s) Active CELECOXIB 200 mg 1 cap(s) orally 2 times a day; Duration: 30 day(s) Active Zinc Acetate 50 MG 1 cap(s) orally Qday Active Calcium Carbonate 600 MG 2 tab(s) orally once a day Active Multivitamin MULTIPLE VITAMINS 1 CAP(S) ORALLY ONCE A DAY; Duration: 30 DAY(S) *Please review and pick correct strength-formulati on from [employer] options. If intended option is not shown, discontinue and re-order from Spot formerly [employer] Search* Active TRIAMCINOLONE TOPICAL 0.1% 1 kj applied topically 3 times a day; Duration: 7 day(s) Active Synthroid 25 MCG 1 tab(s) orally once a day; Duration: 30 day(s) Active AZELASTINE HYDROCHLORIDE NASAL 205.5 mcg/inh 2 spray(s) intranasally 2 times a day; Duration: 30 Active busPIRone HCl 10 MG 1 tab(s) orally 2 times a day; Duration: 30 day(s) Active Celecoxib 200 MG 1 cap(s) orally 2 times a day; Duration: 30 day(s) Active TRAZADONE 50MG 1 BY MOUTH AT BEDTIME *Please review for potential replacement for e-prescription and drug interaction check* Active Pantoprazole Sodium 40 MG 1 tab(s) orally once a day; Duration: 30 day(s) Active Atorvastatin Calcium 20 MG 1 tab(s) orally once a day; Duration: 30 day(s) Active Esomeprazole Magnesium 40 MG 1 cap(s) orally once a day; Duration: 30 day(s) Active ZINC ACETATE 50 mg 1 cap(s) orally Qday Active CALCIUM CARBONATE 600 mg 2 tab(s) orally once a day Active MULTIVITAMIN Multiple Vitamins 1 cap(s) orally once a day; Duration: 30 day(s) Active Immunizations Vaccine Route Administration Date Status Comme nts NOC Tdap Unknown 02/18/2017 Administered Portal Infor mation NOC Tdap Unknown 02/18/2017 Administered Portal Infor mation Influenza Unknown 05/22/2020 Administered Portal Infor mation Influenza Unknown 05/22/2020 Administered Portal Infor mation Problems Problem Type SNOMED Code ICD Code Onset Dates Problem Status W/U Status Risk Notes Problem Chronic rhinitis (01239175) Chronic rhinitis (J31.0) Active confirmed Problem Eruption of skin (259351027) Rash and other nonspecific skin eruption (R21) Active confirmed Problem Food allergy (330242611) Allergy to other foods (Z91.018) Active confirmed Plan Of Treatment No Information Insurance Providers Payer Name Payer Address Payer Phone Subscriber Number Group Number Insured Name Patient Relationship to Insured Coverage Start Date Coverage End Date [employer] Choice POS II [address] [place] [address] [id number] 1 Erin Stephens Self - patient is the insured Medical (General) History Medical History History ICD Code Thyrotoxicosis, unspecified without thyr otoxic crisis or storm E05.90 Hyperlipidemia, unspecified E78.5 Gastro-esophageal reflux disease without esophagitis K21.9 Manic episode, unspecified F30.9 Surgical History Surgery Date(Month/Year) Adenoidectomy and turbinate reduction uterine ablation 08/11/2001 lower lumbar fusion 09/21/2015 bilateral partial knee replacement 02/23 Hospitalization History Reason Date(Month/Year) Chilbirth 09/26/2019 Childbirth 08/12/1986
--- OUTSIDE RECORDS SUMMARY | 2025-07-28 15:41 | XMS_ITS | Encounter Summary ---
Author Organization [facility] Address [address] [place] [address] Care Team Providers Care Meat Supervisor Name Role Phone Vicente Abdalla MD Primary Care Provider + Encounter Details Date Type Department Care Team (Late st Contact Info) Description 01/19/2020 Lab Requisition [facility] [address] [place] [address] Jaime Aguillon MD [address] [place] [address] Social History Tobacco Use Types Packs/Day Years Used Date Smoking Tobacco: Former Cigarettes 0 Q uit: 01/16/1981 Alcohol Use Standard Drinks/Week Comments Not Asked 0 (1 standard drink = 0.6 oz pur e alcohol) Comments Unknown Sex and Gender Information Value Date Recorded Sex Assigned at Not on file 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 Gender Identity Not on file Sexual Orientation Not on file documented as of this encounter Plan of Treatment Not on file documented as of this encounter Procedures Procedure Name Priority Date/Time Associated Diagnosis Comments DERMATOPATHOLOGY Routine 01/18/2020 12:0 0 AM CDT documented in this encounter Results * DERMATOPATHOLOGY (01/18/2020 12:00 AM CDT) Case Report Dermatopathology Report Case: [id number] Authorizing Provider: Jaime Aguillon MD Collected: 01/18/2020 12:00 AM Ordering Location: [facility] DermPath Lab Received: 01/19/2020 09:06 AM Pathologist: Wendi Dasilva MD Specimen: Skin, right corner mouth 0 8:16 PM CDT DERMATOPATHOLOGY LABORATORY Final Diagnosis Specimen A. SKIN, right corner mouth: HYPERPLASTIC (HYPERTROPHIC) ACTINIC KERATOSIS; EXTENDING TO THE BASE OF THE SPECIMEN (L57.0) (see microscopic description and comment) 0 8:16 PM CDT DERMATOPATHOLOGY LABORATORY at 2016 CDT Clinical History BCCA vs SCCA vs HSV. Path# [id number] 0 8:16 PM CDT DERMATOPATHOLOGY LABORATORY Gross Description Specimen A: Received is one formalin filled container labeled with the patient's name and designated right corner mouth. The specimen consists of a shave biopsy measuring 5x3x1 mm. Jar 0. 0 8:16 PM CDT DERMATOPATHOLOGY LABORATORY Microscopic Description Specimen A. SKIN, right corner mouth: There is hyperkeratosis alternating with parakeratosis. There is epidermal hyperplasia with disorderly maturation of keratinocytes with nuclear pleomorphism confined to the lower half of the epidermis. This process extends to the base of the specimen. HSV immunostain is negative. Additional deeper sections were obtained and reviewed. COMMENT: A squamous cell carcinoma cannot be ruled out. 0 8:16 PM CDT DERMATOPATHOLOGY LABORATORY Disclaimer An external and internal positive and negative controls are appropriate for the histochemical, immunohistochemical and immunofluorescence stain(s) in this case (if any), except where stated explicitly. The performance characteristics of the stain(s) cited in this report were developed and its performance characteristic determined by the Dermatopathology Laboratory at [facility], directed by Dr. Emiliano Motley. These tests need not be, and therefore are not, approved by the [place] Food and Drug Administration. The tests are used for clinical purposes. Billing Codes Specimen Charges Stain Charges 23887 1 64866 1 0 8:16 PM CDT DERMATOPATHOLOGY LABORATORY Embedded Images 0 8:16 PM CDT DERMATOPATHOLOGY LABORATORY Pathology/Cytolog y TISSUE SPECIMEN FROM SKIN / Unknown 01/18/2020 01/19/2020 9:06 AM CDT us Jaime Aguillon MD LAB - PATHOLOGY/CYTOLOGY ORDER CLAU Final Result DERMATOPATHOLOGY LABORATORY [facility] - Department of Dermatology [facility] [place] [address], [facility] [phone] documented in this encounter Visit Diagnoses Not on filedocumented in this encounter Care Teams Meat Supervisor Relationship Specialty Start Date End Date Vicente Abdalla MD [address] [address] PCP - General 01/16/15 documented as of this encounter
--- OUTSIDE RECORDS SUMMARY | 2025-07-28 15:41 | XMS_ITS | Clinical Summary ---
Author Organization [facility] Address [address] [place] [address] Care Team Providers Care Supervisor Assembly Stock Name Role Phone Vicente Abdalla MD Primary Care Provider + Source Comments [facility],non-[facility] Affiliates and Associated Physician Practices is amultiple site organization consisting of ambulatory clinics and hospital sitesin [place], [place], [place] and [place]. This disclosure is being madepursuant to the Care Everywhere program and may not contain all information available regarding this patient. 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 Gender Identity Not on file Sexual Orientation Not on file Last Filed Vital Signs Vital Sign Reading Time Taken Comments Blood Pressure - - Pulse - - Temperature - - Respiratory Rate - - Oxygen Saturation - - Inhaled Oxygen Concentration - - Weight 63.5 kg (140 lb) 01/16/2015 1:21 PM CDT Height 157.5 cm (5' 2) 01/16/2015 1:21 PM CDT Body Mass Index 25.61 01/16/2015 1:21 PM CDT Plan of Treatment Health Maintenance Due Date Last Done Comments BONE DENSITY TESTING 1960 COLOGUARD (AGES 45-75) - COL ON CA SCREENING 1960 COLON MONITORING 1958 COLONOSCOPY - COLON CA SCREENING 1958 CT COLONOGRAPHY - COLON CA SCREENING 1960 Colorectal Cancer Screening 1960 FIT - COLON CA SCREENING 1958 FLEX SIG - COLON CA SCREENING 1958 LIPID TESTING 1960 MAMMOGRAM 1958 HEPATITIS C SCREENING 05/23/1976 DTAP/TDAP/TD VACCINES (1 - Tdap) 1977 PNEUMOCOCCAL VACCINE 50+ (1 of 1 - PCV) 2008 ZOSTER VACCINE (1 of 2) 2008 DEPRESSION SCREENING 08/11/2024 COVID-19 VACCINE (1 - 2024-2 6 season) 2025 INFLUENZA VACCINE (#1) 2025 Respiratory Syncytial Virus (RSV) Vaccine Pt: or over 60 yrs (1 - 1-dose 75+ series) 2033 HEPATITIS B VACCINE Aged Out No longe r eligible based on patient's age to complete this topic HIB VACCINE Aged Out No longer eligi ble based on patient's age to complete this topic HPV VACCINE Aged Out No longer eligi ble based on patient's age to complete this topic MENINGOCOCCAL (Group B) VACC INE SHARED DECISION-MAKING Aged Out No longer eligibl e based on patient's age to complete this topic MENINGOCOCCAL GROUPS A/C/Y/W VACCINE Aged Out No longer eligible b ased on patient's age to complete this topic Insurance AETNA Care Teams Supervisor Assembly Stock Relationship Specialty Start Date End Date Vicente Abdalla MD [address] [address] PCP - General 01/16/15
== END 2025-07-28 14:44 | disposition home or self-care (01) ==
PROVIDERS: PCP Family Medicine Adolescent Medicine; Visit Provider Nurse Practitioner Family
DX: Z12.31 Encounter for screening mammogram for malignant neoplasm of breast (principal); G31.84 Mild cognitive impairment of uncertain or unknown etiology
CPT/HCPCS: 70551; 77063; 77067